=== PATIENT | female | born 1955 | race Caucasian/White ===

== ENCOUNTER → 2017-12-27 08:14 | Outpatient (CLI) | payer BC, SELFPAY ==
--- NOTE | 2017-12-27 08:25 | RAD_ITS ---
STUDY: X-RAY - ESOPHAGUS (BARIUM SWALLOW) WITH FLUOROSCOPY REASON FOR EXAM: Female, 62 years old. Hoarseness and dry mouth. Patient has a history of Sjogren's disease. TECHNIQUE: 16 view(s) of the esophagus were obtained following swallowing of barium. FLUOROSCOPY TIME (if supplied): (0:25) minutes/seconds COMPARISON: None. FINDINGS: There is evidence of aspiration with ingestion of the thin barium. There is no demonstrated esophageal foreign body. There is no demonstrated stricture or mucosal abnormality. Normal gastroesophageal junction, without a demonstrated hiatal hernia. The patient ingested a 12 mm tablet of barium without any difficulty. There is atherosclerotic tortuosity of the aortic arch and descending thoracic aorta. Normal visualized pulmonary parenchyma. There are diffuse degenerative changes of the visualized thoracic spine. RAD/Esophagus Only IMPRESSION: Unremarkable esophagram. The patient aspirated the thin barium. Electronically Signed: Kendrick Salguero MD at 10:09 EDT Tel [phone], Service support ,
== END ==
LOC: RAD 08:15
PROVIDERS: Family Provider Family Medicine; PCP Family Medicine; Visit Provider Family Medicine
DX: R13.10 Dysphagia, unspecified (principal)
CPT/HCPCS: 74220

== ENCOUNTER → 2018-01-24 14:24 | Outpatient (CLI) | payer BC, SELFPAY ==
--- NOTE | 2018-01-24 15:53 | CT_ITS ---
STUDY: CT BRAIN WITH AND WITHOUT CONTRAST REASON FOR EXAM: Female, 62 years old. 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 RADIATION DOSAGE (If Supplied By Facility): CTDIvol = ( 30.10 ) mGy, DLP = ( 2998.85 ) mGycm TECHNIQUE: Transaxial CT imaging of the brain was performed pre and post contrast administration. The examination was performed with intravenous administration of 100 ml of Isovue 300 contrast material. Individualized dose optimization techniques were used for this CT. COMPARISON: None. FINDINGS: Normal soft tissue structures. Normal calvarium. Normal size ventricles and extra-axial spaces for the patient's age. Normal white matter tracts of the cerebral hemispheres. Normal basal ganglia and thalami. Normal brainstem. Normal cerebellum. There is no intracranial hemorrhage. There are no findings of an acute ischemic infarction. There is no abnormal contrast enhancement. The vasculature appears grossly normal. Normal visualized paranasal sinuses. CT/Brain/Head W/WO Contrast IMPRESSION: Normal unenhanced and enhanced CT scan of the brain. Electronically Signed: Jamey Benites DO at 18:55 EDT Tel [phone], Service support ,
--- NOTE | 2018-01-24 15:54 | CT_ITS ---
STUDY: CT SOFT TISSUE NECK WITH CONTRAST REASON FOR EXAM: Female, 62 years old. 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 RADIATION DOSAGE (If Supplied By Facility): CTDIvol = ( 30.10 ) mGy, DLP = ( 2998.85 ) mGycm TECHNIQUE: The patient was scanned in a multi-detector CT scanner. High resolution transaxial imaging was performed following intravenous administration of 100 ml of Isovue 300 contrast material. Sagittal and coronal images were reconstructed. Individualized dose optimization techniques were used for this CT. COMPARISON: None. FINDINGS: Both parotid glands are normal in size. They appear heterogenous lead dense. There is air within the right parotid gland and along the parotid duct without evidence of obstruction. Normal bilateral energy management specialist spaces. Normal bilateral parapharyngeal spaces. Normal bilateral carotid spaces. Normal bilateral sublingual and submandibular glands and spaces. Normal visualized nasopharynx. Normal retropharyngeal space. Normal perivertebral space. Normal visualized bilateral faucial tonsils. The visualized tongue, tongue base and oropharynx are normal. The visualized cervical lymph nodes (levels I-) are within normal size limits, and maintain normal morphology. There is no demonstrated solid or cystic mass lesion. There is no abnormal contrast enhancement. Normal epiglottis, bilateral vallecula and hypopharynx. The pre-epiglottic and paraglottic adipose spaces are normal. Normal visualized bilateral piriform sinuses, aryepiglottic folds, vocal cords, and arytenoid-cricoid articulations. Normal subglottic trachea. Normal bilateral lobes of the thyroid gland. Normal visualized pulmonary apices. Normal visualized paranasal sinuses. Minimal degenerative changes of the cervical spine. CT/Soft Tissue Neck WITH Contrast IMPRESSION: 1. Right sided pneumoparotid. This is usually occupational and seen in breasts and woodwinds players, glass blowers and underwater divers. This can sometimes be caused by suppressing a chronic cough. 2. No other visualized mass or abnormality of the soft tissues of the neck. Electronically Signed: Jamey Benites DO at 19:30 EDT Tel [phone], Service support ,
--- NOTE | 2018-01-24 15:54 | CT_ITS ---
STUDY: CT CHEST WITH CONTRAST REASON FOR EXAM: Female, 62 years old. 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 These RADIATION DOSAGE (If Supplied By Facility): CTDIvol = ( 30.10 ) mGy, DLP = ( 2998.85 ) mGycm TECHNIQUE: Transaxial imaging was performed following intravenous administration of 100 ml of Isovue 300 contrast material. Multiplanar coronal and sagittal images were reformatted. Individualized dose optimization techniques were used for this CT. COMPARISON: None. FINDINGS: The lungs are well-expanded. There is elevation of the right hemidiaphragm. There are scattered blebs without consolidation or mass. There is no demonstrated pleural abnormality. Normal heart and pericardium. Normal mediastinum. Normal hilar regions. Normal enhanced pulmonary arteries. Normal aorta arch and descending thoracic aorta. There are multi-level degenerative changes of the thoracic spine. There is a large irregular calcification in the dome of segment [address]/Chest WITH Contrast IMPRESSION: 1. Scattered blebs without other evidence of pulmonary abnormality. 2. Irregular calcification in the liver. Electronically Signed: Jamey Benites DO at 19:36 EDT Tel [phone], Service support ,
[2018-01-24 16:02] LABS: BUN 17 mg/dL (7-18); Creatinine, Serum 1.05 mg/dL (0.55-1.02); EST Glomerular Filtration Rate 57 mL/min (>60); Est Glom Filt Rate - Afr Amer 69 mL/min (>60)
== END ==
PROVIDERS: Family Provider Family Medicine; PCP Family Medicine; Visit Provider Otolaryngology
DX: J38.01 Paralysis of vocal cords and larynx, unilateral (principal)
CPT/HCPCS: 36415; 70470; 70491; 71260; 82565; 84520; Q9967

== ENCOUNTER → 2018-01-27 09:52 | Outpatient (CLI) | payer BC, SELFPAY ==
[2018-01-27 15:08] LABS: AST(SGOT) 17 U/L (15-37); Alanine Aminotransfer ALT/SGPT 17 U/L (13-56); Albumin, Serum 3.5 g/dL (3.2-5.0); Alkaline Phosphatase 80 U/L (45-117); Globulin 4.7 g/dL (2.2-4.2); Protein, Total 8.2 g/dL (6.4-8.2)
== END ==
PROVIDERS: Family Provider Family Medicine; PCP Family Medicine; Visit Provider Otolaryngology
DX: D13.4 Benign neoplasm of liver (principal)
CPT/HCPCS: 80069; 80076

== ENCOUNTER → 2018-01-31 09:17 | Outpatient (CLI) | payer BC, SELFPAY ==
--- NOTE | 2018-01-31 09:27 | US_ITS ---
STUDY: ABDOMINAL ULTRASOUND - RIGHT UPPER QUADRANT REASON FOR VISIT: Female, 62 years old. Benign neoplasm of liver TECHNIQUE: Ultrasound evaluation of the right upper quadrant was performed with real-time and static goff-scale imaging. TECHNICAL QUALITY: Limited. Examination limited due to obesity. COMPARISON: Report of prior study of 05/14/2011 FINDINGS: Liver: The liver measures 16.3 cm. There is normal echogenicity of the liver. The bile ducts are within normal limits. There is hepatic color flow. The direction of portal flow is hepatopetal. There is a heterogeneous hyperechoic lesion of the superior aspect of the right hepatic lobe measuring 2.3 x 1.9 x 2.8 cm. Gallbladder: Normal distended gallbladder. The gallbladder wall measures 3 mm. There is a negative sonographic Duval's sign. There is no pericholecystic fluid. There are no gallstones. Common Bile Duct (C.B.D.): The common bile duct measures 4 mm. Pancreas: There is limited visualization of the pancreas. The visualized pancreas is unremarkable. Right Kidney: Normal size of the right kidney. The right kidney measures 11.7 x 5.6 x 5.3 cm. Normal renal cortex. The right cortex measures 1.2 cm. There is no demonstrated renal mass or cyst. There is no right hydronephrosis. US/Liver IMPRESSION: Technically limited study. There is a heterogeneous hyperechoic lesion of the superior aspect of the right hepatic lobe measuring 2.3 x 1.9 x 2.8 cm. This corresponds to dense hepatic calcification reported on CT study of 01/24/2018. There is limited visualization of the pancreas. Electronically Signed: Santino Lemus MD at 20:28 EDT , Service support ,
== END ==
LOC: US 09:20
PROVIDERS: Family Provider Family Medicine; PCP Family Medicine; Visit Provider Otolaryngology
DX: D13.4 Benign neoplasm of liver (principal)
CPT/HCPCS: 76705

== ENCOUNTER → 2020-01-03 10:30 | Outpatient (CLI) | payer BC, SELFPAY ==
[2020-01-03 12:35] LABS: Absolute Lymphocyte Count 1.02 X10^3/uL (0.83-4.51); Absolute Neutrophil Count 1.4 X10^3/uL (2.0-7.7); Basophil# 0.02 X10^3/uL; Basophil% 0.7 % (0-1); Eosinophils% 3.6 % (0-5); Hematocrit 39.5 % (37-47); Hemoglobin 12.7 g/dL (12.0-15.0); Lymphocyte # 1.02 X10^3/ul (4.0); Lymphocyte % 36.8 % (19-41); Mean Corp Hgb Conc 32.2 g/dL (32-36); Mean Corpuscular Hgb 30.5 pg (27.0-32.0); Mean Platelet Vol. 10.2 fl (6.2-12.0); Monocyte# 0.23 X10^3/uL; Monocyte% 8.3 % (0-10); NRBC Flagged by Analyzer 0 % (0-5); Neutrophil % 50.6 % (47-70); Platelet Count 310 K/mm3 (150-450); RBC Distribution Width CV 12.7 % (11.6-14.6); RBC Distribution Width SD 43.8 fl (35.1-43.9); Red Blood Count 4.16 M/mm3 (4.2-5.4); White Blood Count 2.8 K/mm3 (4.4-11.0)
== END ==
PROVIDERS: PCP Family Medicine; Referring Provider Internal Medicine Rheumatology; Visit Provider Internal Medicine Rheumatology
DX: D72.819 Decreased white blood cell count, unspecified (principal)
CPT/HCPCS: 36415; 85025

== ENCOUNTER → 2020-11-21 08:26 | Outpatient (CLI) | payer OTHER, SELFPAY ==
[2020-11-21 10:07] LABS: Absolute Lymphocyte Count 0.96 X10^3/uL (0.83-4.51); Absolute Neutrophil Count 1.2 X10^3/uL (2.0-7.7); Basophil# 0.02 X10^3/uL; Basophil% 0.8 % (0-1); Eosinophil# 0.11 X10^3/uL; Eosinophils% 4.4 % (0-5); Hematocrit 37.3 % (37-47); Hemoglobin 11.8 g/dL (12.0-15.0); Lymphocyte # 0.96 X10^3/ul (0.83-4.51); Lymphocyte % 38.2 % (19-41); Mean Corp Hgb Conc 31.6 g/dL (32-36); Mean Corpuscular Hgb 30.1 pg (27.0-32.0); Mean Corpuscular Volume 95.2 fL (81-99); Mean Platelet Vol. 10.8 fl (6.2-12.0); Monocyte# 0.27 X10^3/uL; Monocyte% 10.8 % (0-10); NRBC Flagged by Analyzer 0 % (0-5); Neutrophil # 1.15 X10^3/uL (2.7-7.7); Neutrophil % 45.8 % (47-70); Platelet Count 273 K/mm3 (150-450); RBC Distribution Width CV 12.9 % (11.6-14.6); RBC Distribution Width SD 44.5 fl (35.1-43.9); Red Blood Count 3.92 M/mm3 (4.2-5.4); White Blood Count 2.5 K/mm3 (4.4-11.0)
== END ==
LOC: MTLAB 08:28
PROVIDERS: PCP Family Medicine; Referring Provider Internal Medicine Rheumatology; Visit Provider Internal Medicine Rheumatology
DX: D72.819 Decreased white blood cell count, unspecified (principal)
CPT/HCPCS: 36415; 85025

== ENCOUNTER 2021-03-28 20:27 | Inpatient (IN) | payer OTHER, SELFPAY ==
[2021-03-28] VITALS (8 sets, daily range): BP systolic 102–127; BP diastolic 62–78; PULSE 84–99; RESP 24–29; TEMP 37.7–39.2; O2SAT 92–94; BMI 35.5
--- NOTE | 2021-03-28 20:58 | EKG12_ITS ---
Test Reason : DYSRHYTHMIA Blood Pressure : / mmHG Vent. Rate : 097 BPM Atrial Rate : 097 BPM P-R Int : 148 ms QRS Dur : 082 ms QT Int : 342 ms P-R-T Axes : 031 068 025 degrees QTc Int : 434 ms Normal sinus rhythm Normal ECG When compared with ECG of 19-FEB-2012 00:40, Vent. rate has increased BY 35 BPM Confirmed by BOGDAN DICKEY, JENELLE ([id number]), department editor BAYLEE XAVIER ([id number]) on 04/02/2021 11:13:02 AM Referred By: Confirmed By:JENELLE MCFADDEN MD
--- NOTE | 2021-03-28 20:58 | RAD_ITS ---
HISTORY: Cough EXAMINATION/TECHNIQUE: XR Chest 1 View: Portable upright AP chest x-ray COMPARISON: Chest CT 01/24/18, chest x-ray 03/04/12 FINDINGS: LINES/DEVICES: None. LUNGS: Persistent elevation right hemidiaphragm. Hazy bilateral airspace opacities without consolidation or pleural effusion. MEDIASTINUM AND CARDIOVASCULAR STRUCTURES: Cardiac silhouette not enlarged. Central airways and mediastinal contour are unremarkable. BONES AND SOFT TISSUES: No acute bony abnormalities. RAD/Chest 1 View (Portable) IMPRESSION: Hazy bilateral airspace disease suspicious for pneumonia including atypical or viral pneumonia. at 2315 Reported and signed by: Slava Montero MD Electronically Signed: Slava Montero MD at 23:14 EDT Tel , Service support ,
[2021-03-28 21:11] LABS: Bacteria 0 SEEN /hpf (None Seen); Mucous, Urine 0 SEEN /hpf (<or=2+)
[2021-03-28 21:15] LABS: Color, Urine Yellow (Yellow); Glucose, Dipstick Normal (Normal); Ketone-Dipstick 5 mg/dl (Negative); Leukocyte Esterase-Dipstick 25 /ul (Negative); Nitrite-Dipstick Negative (Negative); Occult Blood-Urine 10 /ul (Negative); Protein-Dipstick 100 mg/dl (Negative); Specific Gravity, Urine 1.015 (1.002-1.030); Urine Bilirubin Dipstick Negative (Negative); Urine Clarity Sl. Cloudy (Clear); Urine Urobilinogen 1 mg/dl (Normal)
--- NOTE | 2021-03-28 21:19 | EDS_ITS ---
HPI History of Present Illness Chief Complaint: Fatigue Detail of Chief Complaint: Recent urinary tract infection, confusion Informant: family Onset/Context/Timing Onset: Today Context: Sudden Onset Timing: Continuous Quality: Confusion Location: Generalized Current Severity: Moderate Maximum Severity: Moderate Worsened by: Suspect due to urinary tract infection Relieved by: Nothing Associated Symptoms Associated Symptoms: Unable to determine Narrative Narrative: The informant is the family member/daughter. She was recently diagnosed with urinary tract infection. She is present on Macrobid. She developed diarrhea yesterday. There is a relative with Covid. There may have been exposure. She does have slight cough. She has had no vomiting or. History is limited because she is disoriented to time and place. Prior similar symptoms: Yes (Per family member she has had confusion when she is had a urinary tract inf) Recent Illness/Hospitalization: No PFSH PFSH Medical History (Updated 03/28/21 @ 23:[address] Abran Bai MD) Asthma Fibromyalgia H/O Sjogren's disease Rheumatoid arthritis UTI (urinary tract infection) Home Medications cholecalciferol (vitamin D3) 50,000 unit PO QWEEK 03/28/21 [History Last Taken Unknown] hydroxychloroquine 200 mg PO DAILY 03/28/21 [History Last Taken Unknown] Allergy/AdvReac Type Severity Reaction Status Date / Time No Known Allergies Allergy Verified 03/28/21 22:52 Social History (Updated 03/28/21 @ 21:[address] Abran Bai MD) household members: family Smoking Status: Never smoker alcohol intake: current alcohol intake frequency: other substance use type: does not use ROS ROS ED Review of Systems ROS Unobtainable: due to mental status EXAM Physical Exam Const Vital Signs: 03/28/21 20:27 03/28/21 20:31 03/28/21 21:31 Temperature 99.8 F H 102.2 F H 102.5 F H Temperature Source Oral Oral Oral Pulse Rate 99 92 94 Respiratory Rate 24 H 29 H 29 H Blood Pressure 121/78 H 127/68 H 122/74 H Blood Pressure Mean 92 87 90 Pulse Ox 92 94 94 Oxygen Delivery Method Room Air Room Air Room Air 03/28/21 21:58 03/28/21 22:00 Temperature 102.5 F H 102.5 F H Temperature Source Oral Oral Pulse Rate 91 Respiratory Rate 29 H Blood Pressure 111/62 Blood Pressure Mean 78 Pulse Ox 92 Oxygen Delivery Method Room Air Positive well nourished, well developed and obese General Appearance ED: well developed and NAD Nutritional Appearance: obese HEENT HEENT Narrative: Head is atraumatic normocephalic. Ears normal. Nares patent. Mucosa is dry. No erythema exudate posterior pharynx. Eyes PERRL and EOMs intact bilaterally General Eye ED: Negative for pale conjunctiva or scleral icterus Neck no lymphadenopathy, supple and no JVD General: Negative for tenderness Chest Wall inspection of chest normal Resp normal respiratory effort and clear to auscultation bilaterally Cardio regular rate, regular rhythm, S1 normal heart sound, S2 normal heart sound and no murmurs GI normal to inspection, nondistended, normoactive bowel sounds and non-tender Palpation: soft Back/Spine no CVA tenderness Cervical Spine: Negative for cervical spine tenderness Thoracic Spine / Upper Back: Negative for thoracic spinal tenderness or paraspinal muscle tenderness Extremity normal to inspection General Extremety ED: Negative for tenderness Neuro No oriented x3, CN's II-XII intact bilaterally and no sensory deficits noted Sensorium / Orientation: orientation impaired; Negative for alert Psych Psych Narrative: Unable to determine Skin no rashes or lesions noted and no wounds MDM MDM MDM Narrative Medical decision making narrative: Patient is febrile. Suspect infectious cephalopathy due to urinary tract infection. She does have 2 sirs criteria. Sepsis work-up was initiated. IV antibiotics for urinary tract infection was ordered. Because of the diarrhea Covid test was obtained since there was exposure to family member with Covid. Daughter states she has been vaccinated. Also need to rule out other causes. Would not suspect Macrobid to be cause of diarrhea since it is not systemically absorbed. This patient has bilateral institution pneumonia azithromycin was also administered. This may represent Covid. Her encephalopathy may be due to Covid need to evaluate for stroke since she is at increased risk for hypercoagulable state. Lab Data Attestation: I reviewed the patient's lab results. Lab results narrative: Patient is neutropenic. She has been neutropenic on prior lab results. UA is unremarkable. Coags are normal. Labs: Laboratory Results - last 24 hr 03/28/21 03/28/21 03/28/21 21:05 21:30 21:30 WBC 3.1 L RBC 4.82 Hgb 14.4 Hct 45.1 MCV 93.6 MCH 29.9 MCHC 31.9 L RDW Std Deviation 44.6 H RDW Coeff of Megan 13.0 Plt Count 200 MPV 10.8 Immature Gran % (Auto) 0.300 Neut % (Auto) 75.3 H Lymph % (Auto) 20.6 [place] % (Auto) 3.5 Eos % (Auto) 0.0 Baso % (Auto) 0.3 Absolute Neuts (auto) 2.3 Absolute Lymphs (auto) 0.64 L Nucleated RBC % 0 Differential Comment SCANNED PT 12.9 INR 1.0 APTT 34.2 Sodium Potassium Chloride Carbon Dioxide Anion Gap BUN Creatinine Estim Creat Clear Calc Est GFR (MDRD) Af Amer Est GFR (MDRD) Non-Af BUN/Creatinine Ratio Glucose Lactic Acid Calcium Total Bilirubin AST ALT Alkaline Phosphatase Total Protein Albumin Globulin Albumin/Globulin Ratio Urine Color Yellow Urine Clarity Sl. Cloudy Urine pH 6.0 Ur Specific [place] 1.015 Urine Protein 100 H Urine Glucose (UA) Normal Urine Ketones 5 H Urine Occult Blood 10 H Urine Nitrite Negative Urine Bilirubin Negative Urine Urobilinogen 1 H Ur Leukocyte Esterase 25 H Urine RBC 0-5 SEEN Urine WBC 0-5 SEEN Ur Squamous Epith Cells 0-5 SEEN Ur Transition Epith Cell 0-5 SEEN Urine Bacteria 0 SEEN Urine Mucus 0 SEEN 03/28/21 03/28/21 21:30 21:30 WBC RBC Hgb Hct MCV MCH MCHC RDW Std Deviation RDW Coeff of Megan Plt Count MPV Immature Gran % (Auto) Neut % (Auto) Lymph % (Auto) [place] % (Auto) Eos % (Auto) Baso % (Auto) Absolute Neuts (auto) Absolute Lymphs (auto) Nucleated RBC % Differential Comment PT INR APTT Sodium 132 L Potassium 4.2 Chloride 99 Carbon Dioxide 26.0 Anion Gap 7 BUN 13 Creatinine 1.10 H Estim Creat Clear Calc 48.37 Est GFR (MDRD) Af Amer 64 Est GFR (MDRD) Non-Af 53 L BUN/Creatinine Ratio 11.8 Glucose 99 Lactic Acid 1.5 Calcium 9.1 Total Bilirubin 0.70 AST 54 H ALT 28 Alkaline Phosphatase 69 Total Protein 10.1 H Albumin 3.5 Globulin 6.6 H Albumin/Globulin Ratio 0.5 L Urine Color Urine Clarity Urine pH Ur Specific [place] Urine Protein Urine Glucose (UA) Urine Ketones Urine Occult Blood Urine Nitrite Urine Bilirubin Urine Urobilinogen Ur Leukocyte Esterase Urine RBC Urine WBC Ur Squamous Epith Cells Ur Transition Epith Cell Urine Bacteria Urine Mucus Radiography Chest X-Ray - ED: 1 View, Read by ED Physician (Single portable view x-ray interpreted me at 2250. There is increased interstitial markings on the left with air bronchogram. This may represent pneumonia. This may be due to Covid since she was exposed even though she was vaccinated.), Heart, Mediastinum and Bony Structures EKG Initial EKG: Attestation: I personally reviewed and interpreted this EKG as follows: Interpretation: Sinus Rhythm (Ventricular rate is 97. [place] interval is 148 ms. Duration is 82 ms. QT duration 342 ms. [place] normal. EKG is normal.) Critical Care Time Critical Care Time: Yes Critical care time (excluding procedures): 30-74 minutes (32 minutes), Including time spent: (History, physical, documentation, review of prior records, interpretation of laboratory results and chest x-ray, initiation of therapy), Discussing w/Patient &/or Family/Bi Specialist, Discussing w/Consultants and Arranging Admission or Transfer Discharge Plan Triage Chief Complaint: Fatigue ED Provider: Abran Bai Dx/Rx/DC Orders Clinical Impression: Bilateral interstitial pneumonia, Neutropenia, Encephalopathy acute, Fever, Fever and neutropenia Prescriptions: No Action cholecalciferol (vitamin D3) 1,250 mcg (50,000 unit) capsule 50,000 unit PO QWEEK RF: 0 hydroxychloroquine 200 mg tablet 200 mg PO DAILY RF: 0 Primary Care Provider: Jacqueline Layne Referrals: Jacqueline Layne DO [Primary Care Provider] - Disposition Disposition: Acute Care Hospital [facility]
[2021-03-28 21:38] LABS: Red Blood Cells-Urine 0-5 SEEN /hpf (0-5); Squamous Epithelial Cells - UA 0-5 SEEN /hpf (5-10); Transitional Epithelial - Ur 0-5 SEEN /hpf (0-5); White Blood Cells 0-5 SEEN /hpf (0-5)
[2021-03-28] MEDS: 0.9% Normal Saline 1,000 ML 999 ML IV (21:53)
[2021-03-28 21:54] LABS: Absolute Lymphocyte Count 0.64 X10^3/uL (0.83-4.51); Absolute Neutrophil Count 2.3 X10^3/uL (2.0-7.7); Basophil# 0.01 X10^3/uL; Basophil% 0.3 % (0-1); Hematocrit 45.1 % (37-47); Hemoglobin 14.4 g/dL (12.0-15.0); Lymphocyte # 0.64 X10^3/ul (0.83-4.51); Lymphocyte % 20.6 % (19-41); Mean Corp Hgb Conc 31.9 g/dL (32-36); Mean Corpuscular Hgb 29.9 pg (27.0-32.0); Mean Corpuscular Volume 93.6 fL (81-99); Mean Platelet Vol. 10.8 fl (6.2-12.0); Monocyte# 0.11 X10^3/uL; Monocyte% 3.5 % (0-10); NRBC Flagged by Analyzer 0 % (0-5); Neutrophil # 2.34 X10^3/uL (2.7-7.7); Neutrophil % 75.3 % (47-70); POSITIVE MORPHOLOGY YES; Platelet Count 200 K/mm3 (150-450); RBC Distribution Width SD 44.6 fl (35.1-43.9); Red Blood Count 4.82 M/mm3 (4.2-5.4); White Blood Count 3.1 K/mm3 (4.4-11.0)
[2021-03-28 22:10] LABS: Partial Thromboplast Time 34.2 Seconds (24.1-36.2); Prothrombin Time (Protime)PT. 12.9 SECONDS (11.7-14.9)
[2021-03-28 22:14] LABS: ALB/GLOB Ratio 0.5 RATIO (0.9-2.4); AST(SGOT) 54 U/L (15-37); Alanine Aminotransfer ALT/SGPT 28 U/L (13-56); Albumin, Serum 3.5 g/dL (3.2-5.0); Alkaline Phosphatase 69 U/L (45-117); Anion Gap 7 (5-15); BUN 13 mg/dL (7-18); BUN/Creat Ratio 11.8 RATIO (10-20); Calcium,Total 9.1 mg/dL (8.5-10.1); Chloride 99 mmol/L (98-107); EST Glomerular Filtration Rate 53 mL/min (>60); Est Glom Filt Rate - Afr Amer 64 mL/min (>60); Estimated Creatinine Clearance 48.37 ml/min; Globulin 6.6 g/dL (2.2-4.2); Glucose 99 mg/dL (74-106); Potassium 4.2 mmol/L (3.5-5.1); Protein, Total 10.1 g/dL (6.4-8.2); Sodium Level 132 mmol/L (136-145)
[2021-03-28] MEDS: Ceftriaxone 1 GM/50 ML BAG IV (22:18)
[2021-03-28 22:29] LABS: Lactic Acid 1.5 mmol/L (0.4-1.9)
[2021-03-28 22:37] LABS: Differential Comment SCANNED
[2021-03-28 22:38] LABS: Differential Indicated SCAN CRITERIA MET
--- NOTE | 2021-03-28 22:56 | CT_ITS ---
We are attempting to reach an attending provider to discuss findings. An addendum with communication details will be sent when the communication is complete. HISTORY: Cephalopathic, febrile, probable Covid TECHNIQUE: Multiple axial images were obtained of the brain without intravenous contrast. A radiation dose optimization technique was used for this scan. IV Contrast dosage and agent: None. COMPARISON: 01/24/18 FINDINGS: # of images incl. 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 INTRACRANIAL HEMORRHAGE: None. BRAIN PARENCHYMA: No CT evidence of stroke. No intracranial masses. There is preservation of the goff/white matter interface. Posterior fossa structures are unremarkable. CSF SPACES: Appropriate for age. There is no hydrocephalus. MASS EFFECT: None. CALVARIUM: Intact. CT/STROKE Brain/Head without Cont IMPRESSION: No acute intracranial findings. Pansinusitis. Individualized dose optimization techniques were used for this CT. at 2334 Reported and signed by: Slava Montero MD Electronically Signed: Slava Montero MD at 23:33 EDT Tel , Service support ,
--- NOTE | 2021-03-28 23:32 | PCM.HP.STD ---
HPI - General General Date of Admission: 03/28/21 Date of Service: 03/28/21 Chief Complaint: Fever, chills, headache, cough, body aches, dyspnea, diarrhea, nausea, abdominal discomfort. HPI Narrative The patient is a 65 y/o F w/ PMHx: Asthma, Sjogren's syndrome, Rheumatoid arthritis, Fibromyalgia, Morbid Obesity who presents to the [facility] ED on 03/28/21 with history of recent sensation of dysuria prompting ED evaluation the Wednesday prior to current presentation with PCP initiation of Macrobid with then onset of symptoms over the last 24 hours fever, chills, headache, cough, dyspnea, diarrhea, abdominal cramping, body aches and eventual confusion with significant fatigue and malaise reportedly sleeping for several hours on and which is not patient's baseline prompting evaluation. Patient is not vaccinated against Covid. Family had initially been concerned that this was secondary to a urinary tract infection. Work-up in the ED included T102.5, heart rate 91-99, BP 111/62, respiratory rate 29-36, 92 to 94% on room air, CBC with WBC 3.1, hemoglobin 14.4, platelet 200 with lymphopenia, ANC 2.3 of note given patient history, unremarkable coags, CMP with sodium 132, BUN/creatinine 13/1.10, lactic acid 1.5, AST/ALT 54/28, alk phos 69, urinalysis with specific [place] 1.015, protein 100, ketone 5, occult blood 10, negative nitrite, leukocyte esterase 25, no marked urine WBCs or urine bacteria, chest x-ray with hazy bilateral airspace disease bilaterally suspicious for atypical viral Covid pneumonia, CT head with no acute intracranial findings, EKG with sinus rhythm with no acute evidence of ischemia, rapid Covid antigen negative, Covid PCR pending per discussion with ED physician, blood culture x2 pending per ED, urine culture pending per ED. in the ED patient ministered normal saline, azithromycin, Rocephin, Decadron 10 mg IV x1. [facility] Medical History (Updated 03/29/21 @ 01:[address] Sheba Zapata MD) Asthma Fibromyalgia H/O Sjogren's disease Rheumatoid arthritis UTI (urinary tract infection) Home Medications cholecalciferol (vitamin D3) 50,000 unit PO QWEEK 03/28/21 [History Last Taken Unknown] hydroxychloroquine 200 mg PO DAILY 03/28/21 [History Last Taken Unknown] Allergy/AdvReac Type Severity Reaction Status Date / Time No Known Allergies Allergy Verified 03/28/21 22:52 other (Patient denied any marked maternal or paternal family history including heart disease, diabetes, cancer.) Surgical History (Updated 03/29/21 @ 01:[address] Sheba Zapata MD) History of hysterectomy Social History (Updated 03/29/21 @ 01:[address] Sheba Zapata MD) household members: spouse Smoking Status: Never smoker alcohol intake: current alcohol intake frequency: other substance use type: does not use ROS ROS Narrative Admission Review of Systems: CONSTITUTIONAL: No weight loss, + fever, chills, weakness or fatigue. HEENT: + Headache. Eyes: No visual loss, blurred vision, double vision or yellow sclerae. Ears, Nose, Throat: No hearing loss, sneezing, congestion, runny nose or sore throat. SKIN: No rash or itching, lesions, wounds. CARDIOVASCULAR: No chest pain, chest pressure or chest discomfort, palpitations, edema, orthopnea, syncopal events. RESPIRATORY: + shortness of breath, cough without marked sputum, No wheezing, hemoptysis. GASTROINTESTINAL: + anorexia, diarrhea, abdominal cramping, No nausea, vomiting, melena, BRBPR. GENITOURINARY: + dysuria, frequency, urgency or retention. NEUROLOGICAL: + headache, No dizziness, syncope, paralysis, ataxia, numbness or tingling in the extremities, focal weakness, change in bowel or bladder control, seizure. MUSCULOSKELETAL: + muscle, back pain, joint pain or stiffness. HEMATOLOGIC: No anemia, bleeding or bruising. LYMPHATICS: No enlarged nodes. No history of splenectomy. PSYCHIATRIC: No history of depression or anxiety. ENDOCRINOLOGIC: No reports of sweating, cold or heat intolerance. No polyuria or polydipsia. ALLERGIES: + history of asthma, hives, eczema or rhinitis. Vital Signs Vital Signs Vital Signs: 03/28/21 20:27 03/28/21 20:31 03/28/21 21:31 Temperature 99.8 F H 102.2 F H 102.5 F H Temperature Source Oral Oral Oral Pulse Rate 99 92 94 Respiratory Rate 24 H 29 H 29 H Respiratory Effort Respiratory Pattern Blood Pressure 121/78 H 127/68 H 122/74 H Blood Pressure Mean 92 87 90 Pulse Ox 92 94 94 Oxygen Delivery Method Room Air Room Air Room Air 03/28/21 21:58 03/28/21 22:00 03/28/21 22:58 Temperature 102.5 F H 102.5 F H Temperature Source Oral Oral Pulse Rate 91 Respiratory Rate 29 H Respiratory Effort Normal Non-Labored Respiratory Pattern Normal Blood Pressure 111/62 Blood Pressure Mean 78 Pulse Ox 92 Oxygen Delivery Method Room Air Weight Weight: 220 lb Body Mass Index (BMI) 35.5 Physical Exam Narrative Physical Examination: General: Awake, intermittently alert, oriented to self and some recent events but very lethargic, quickly falling back asleep and having some difficulty answering questions, laying in the ED bed, significantly ill-appearing, tachypnea, increased work of breathing with accessory muscle usage evident. Skin: Normal color, normal turgor, no icterus, no cyanosis. HEENT: AT/NC, EOMI, PERRLA, dry MM, no carotid bruits or JVD noted. Lungs: Diffusely diminished, greater bases, tachypnea, increased work of breathing with some accessory muscle usage, evidence of distress, no rales, ronchi or wheezing. Heart: Tachycardic with regular rhythm; no gallop, rub audible. Abdomen: Soft, generalized discomfort with palpation, no specific rebound or guarding, unable to discern any distention, hyperactive bowel sounds, no obvious HSM. Extremities: No cyanosis, clubbing, or edema. Neurological: Patient awake, intermittently alert, lethargic, cognitive function not baseline intact; pupils equally reactive to light and accommodation, cranial nerves II-XII grossly normal, moving all 4 extremities, no focal deficits, strength severely global decreased secondary to acute presentation. Psychiatric: Affect appears fatigued, ill-appearing, evidence of respiratory compromise, no acute evidence of depressive or anxiety feelings. Results Lab / Micro Data Result Diagrams: 03/28/21 21:30 03/28/21 21:30 Labs: Laboratory Results - last 24 hr 03/28/21 21:05: Urine Color Yellow, Urine Clarity Sl. Cloudy, Urine pH 6.0, Ur Specific [place] 1.015, Urine Protein 100 H, Urine Glucose (UA) Normal, Urine Ketones 5 H, Urine Occult Blood 10 H, Urine Nitrite Negative, Urine Bilirubin Negative, Urine Urobilinogen 1 H, Ur Leukocyte Esterase 25 H, Urine RBC 0-5 SEEN, Urine WBC 0-5 SEEN, Ur Squamous Epith Cells 0-5 SEEN, Ur Transition Epith Cell 0-5 SEEN, Urine Bacteria 0 SEEN, Urine Mucus 0 SEEN 03/28/21 21:30: WBC 3.1 L, RBC 4.82, Hgb 14.4, Hct 45.1, MCV 93.6, MCH 29.9, MCHC 31.9 L, RDW Std Deviation 44.6 H, RDW Coeff of Megan 13.0, Plt Count 200, MPV 10.8, Immature Gran % (Auto) 0.300, Neut % (Auto) 75.3 H, Lymph % (Auto) 20.6, [place] % (Auto) 3.5, Eos % (Auto) 0.0, Baso % (Auto) 0.3, Absolute Neuts (auto) 2.3, Absolute Lymphs (auto) 0.64 L, Nucleated RBC % 0, Differential Comment SCANNED 03/28/21 21:30: PT 12.9, INR 1.0, APTT 34.2 03/28/21 21:30: Sodium 132 L, Potassium 4.2, Chloride 99, Carbon Dioxide 26.0, Anion Gap 7, BUN 13, Creatinine 1.10 H, Estim Creat Clear Calc 48.37, Est GFR (MDRD) Af Amer 64, Est GFR (MDRD) Non-Af 53 L, BUN/Creatinine Ratio 11.8, Glucose 99, Calcium 9.1, Total Bilirubin 0.70, AST 54 H, ALT 28, Alkaline Phosphatase 69, Total Protein 10.1 H, Albumin 3.5, Globulin 6.6 H, Albumin/Globulin Ratio 0.5 L 03/28/21 21:30: Lactic Acid 1.5 Micro: Microbiology 03/28/21 22:50 Nasal Secretion SARS-CoV-2 Antigen (Rapid) - Final Radiology Impression Chest X-Ray 03/28/21 20:58 IMPRESSION: Hazy bilateral airspace disease suspicious for pneumonia including atypical or viral pneumonia. at 2315 Reported and signed by: Slava Montero MD Electronically Signed: Slava Montero MD at 23:14 EDT Tel , Service support , Assessment & Plan Assessment/Plan (1) Acute respiratory failure with hypoxia: (2) Suspected COVID-19 virus infection: (3) Encephalopathy acute: PLAN: The patient is a 65 y/o F w/ PMHx: Asthma, Sjogren's syndrome, Rheumatoid arthritis, Fibromyalgia, Morbid Obesity who presents to the [facility] ED on 03/28/21 with history of recent sensation of dysuria prompting ED evaluation the Wednesday prior to current presentation with PCP initiation of Macrobid with then onset of symptoms over the last 24 hours fever, chills, headache, cough, dyspnea, diarrhea, abdominal cramping, body aches and eventual confusion with significant fatigue and malaise. 1. Acute Encephalopathy secondary to Acute Hypoxic Respiratory Failure secondary to Acute Bilateral Pneumonia secondary to Suspected Acute Viral Syndrome, COVID-19: Patient Covid antigen rapid is negative however high suspicion for Covid with pending Covid PCR. In the ED patient was administered Rocephin and azithromycin. Will admit to PCU and maintain under Covid precautions given high suspicion and pending PCR, currently worsening hypoxia and respiratory presentation therefore will maintain on oxygen with wean as tolerated to room air but low threshold for transition to air Vo or BiPAP, PRN albuterol, HOB, IS parameters w/ pending sputum cultures, respiratory viral panel and urine antigens, will obtain D-dimer, procalcitonin, CRP, CPK, Ferritin, LDH, trop and BNP, continue supportive care including q 2 hour turning including prone given no prone bed availability and judicious hydration, closely monitor for worsening status for ARDS and multiorgan failure, will consult Infectious disease, will initiate and continue IV decadron x 10 doses given high suspicion for Covid and once Covid PCR results if positive will initiate IV remdesivir. If patient does significantly worsen low threshold for transition to ICU with pulmonary consultation. 2. Rheumatoid arthritis, Sjogren's disease: We will continue patient home hydroxychloroquine although given treatment as noted above if any concerns will hold. 3. Chronic asthma: Not on any routine inhalers, will have as needed albuterol, encourage head of bed, I-S especially given #1. 4. Morbid Obesity: Weight loss and lifestyle changes encouraged. 5. DVT prophylaxis: SCDs, Lovenox. 6. CODE status: Patient does not have healthcare power of attorney at law nor living will in place. Given severity of presentation and high suspicion for Covid in an unvaccinated status with immunosuppression, discussed CODE status at length including difference between FULL code, DNR-CCA and DNR-CC status. Following discussions about the differences in these status, requested Full Code status. Amenable to airvo and BIPAP. Advanced Care Planning Face to Face Time: 16 minutes. Charges/Coding Visit Charges Inpatient E&M: 64292 Init Hosp L3 Procedures Hospitalists Procedures: 90252 Advncd Care Plan 30 Min
[2021-03-28] MEDS: dexAMETHasone 10 MG/ML Vial IV (23:50)
[2021-03-29] VITALS (22 sets, daily range): BP systolic 94–117; BP diastolic 38–96; PULSE 58–83; RESP 16–32; TEMP 36.9–38.2; O2SAT 88–98; BMI 40.4
[2021-03-29 00:56] LABS: D-Dimer Quantitative (DVT/PE) 1.93 FEU/ug/m (0.27-0.49); Ferritin 582 ng/mL (8-252); LDH 631 U/L (84-246); Magnesium 2.5 mg/dL (1.6-2.6)
[2021-03-29] MEDS: 0.9% Normal Saline 1,000 ML 100 ML IV (01:19)
--- NOTE | 2021-03-29 01:27 | CT_ITS ---
EXAM: CT Angiography Chest Without and With Intravenous Contrast CLINICAL INDICATION: 65 years old, Female; suspected PE TECHNIQUE: Helically acquired angiography images were obtained of the chest without and with intravenous contrast. This CT exam was performed using one or more of the following dose reduction techniques: automated exposure control, adjustment of the mA and/or kV according to patient size, and/or use of iterative reconstruction technique. This report was created using [employer] report generation technology. MIP reconstructed images were created and reviewed. CONTRAST: IV 100mL [id number] COMPARISON: None. FINDINGS: Artifacts: Motion artifact. Motion artifact. Limitations: Suboptimal opacification of the pulmonary arteries. Pulmonary arteries: No central pulmonary embolism is identified. The remaining pulmonary arteries cannot be evaluated due to artifact. Aorta: Unremarkable. Normal in caliber. No evidence of dissection. Great vessels of aortic arch: Unremarkable. Normal in caliber. No evidence of dissection. Lungs and pleural spaces: Consolidative infiltrates throughout both lungs consistent with pneumonia. No mass. No pleural effusion or thickening. Heart: Unremarkable. Heart size is normal. No pericardial effusion. No signs of right heart strain, ratio of right ventricle to left ventricle measures less than 1. Mediastinum: Unremarkable. No mediastinal or hilar adenopathy. Esophagus is unremarkable. No hiatal hernia. Thyroid: Unremarkable. No thyroid lesions. Bones/joints: Unremarkable. No suspicious lytic or blastic abnormality. CT/CTA Chest W/WO Contrast IMPRESSION: 1. No central pulmonary embolism is identified. The remaining pulmonary arteries cannot be evaluated due to artifact and suboptimal opacification. 2. Consolidative infiltrates throughout both lungs consistent with pneumonia. Consider COVID-19 pneumonia. ASSESSMENT: ABNORMAL report - There are abnormal findings in this report which may be related or unrelated to the reason for the exam. Electronically Signed: Jeff Christianson MD at 4:08 EDT Tel , Service support ,
[2021-03-29 02:05] LABS: Procalcitonin 0.26 ng/mL (0.00-0.09)
--- NOTE | 2021-03-29 02:22 | NURSING ---
TRANSPORTED VIA BED DOWN TO CT SCAN FOR CTA.
--- NOTE | 2021-03-29 02:28 | NURSING ---
RCVD CALL FROM LAB THAT PATIENT'S COVID PCR CAME BACK POSITIVE.
[2021-03-29 06:23] LABS: Absolute Lymphocyte Count 0.39 X10^3/uL (0.83-4.51); Absolute Neutrophil Count 1.5 X10^3/uL (2.0-7.7); Hemoglobin 11.3 g/dL (12.0-15.0); Lymphocyte # 0.39 X10^3/ul (0.83-4.51); Lymphocyte % 20.4 % (19-41); Mean Corp Hgb Conc 32.3 g/dL (32-36); Mean Corpuscular Hgb 30.1 pg (27.0-32.0); Mean Corpuscular Volume 93.3 fL (81-99); Mean Platelet Vol. 10.6 fl (6.2-12.0); Monocyte# 0.06 X10^3/uL; Monocyte% 3.1 % (0-10); NRBC Flagged by Analyzer 0 % (0-5); Neutrophil # 1.45 X10^3/uL (2.7-7.7); POSITIVE DIFFERENTIAL YES; POSITIVE MORPHOLOGY YES; Platelet Count 160 K/mm3 (150-450); RBC Distribution Width CV 13.2 % (11.6-14.6); RBC Distribution Width SD 45.4 fl (35.1-43.9); Red Blood Count 3.75 M/mm3 (4.2-5.4); White Blood Count 1.9 K/mm3 (4.4-11.0)
[2021-03-29 06:44] LABS: Differential Indicated SCAN CRITERIA MET
[2021-03-29 06:47] LABS: ALB/GLOB Ratio 0.5 RATIO (0.9-2.4); AST(SGOT) 44 U/L (15-37); Alanine Aminotransfer ALT/SGPT 22 U/L (13-56); Albumin, Serum 2.5 g/dL (3.2-5.0); Alkaline Phosphatase 50 U/L (45-117); Anion Gap 7 (5-15); BUN 13 mg/dL (7-18); BUN/Creat Ratio 17.7 RATIO (10-20); Calcium,Total 7.8 mg/dL (8.5-10.1); Chloride 105 mmol/L (98-107); Creatinine, Serum 0.73 mg/dL (0.55-1.02); EST Glomerular Filtration Rate 85 mL/min (>60); Est Glom Filt Rate - Afr Amer 102 mL/min (>60); Estimated Creatinine Clearance 75.71 ml/min; Glucose 150 mg/dL (74-106); Potassium 4.2 mmol/L (3.5-5.1); Protein, Total 7.5 g/dL (6.4-8.2); Sodium Level 135 mmol/L (136-145)
--- NOTE | 2021-03-29 07:25 | PCS.PANDOC ---
PANDEMIC DOCUMENTATION INITIATED: Date: 02/17/2021 Time: 190
[2021-03-29] MEDS: Enoxaparin 30 MG/0.3 ML Syringe SC ×2 (08:12→22:09)
[2021-03-29] MEDS: dexAMETHasone 4 MG/ML Vial 6 MG IV (08:12)
--- NOTE | 2021-03-29 10:01 | CASEMGMT ---
Pt states is not vaccinated. Pt states no concerns getting resources once home. Gwendolyn MATA CM Original Note: ADOLFO MORTON Assessment: Initial transition planning/care coordination assessment. ADOLFO MORTON introduced self and role at [facility], pt voices understanding and consents to assessment. Pt is A/Ox4 and answers all questions appropriately. Pt is currently on 2Lnc and speaks in full sentences. Care providers, pharmacy, and demographics verified. Presentation: Pt currently being treated for UTI w/ macrobid, pt c/o weak and confused Admitting dx: COVID, hypoxia, bilat pna PCP: Xi Specialists: [facility] arthritis clinic Preferred Pharmacy: [facility] Insurance: [employer] Prescription Benefit: Pt states no Rx coverage but states no concerns and states gets reimbursed for some meds. Living Will/HPOA: Pt states does not have LW/HPOA and declines AD info at this time. LNOK: John Medrano, ; Nenita Argueta, daughter Living Arrangements: Pt states lives with in mobile home and states no concerns at home. Pt states is independent with ADL's. Transportation: Pt states drives self and states no transportation concerns. DME/HHC: Pt states has [facility] at home but does not use and states no need for any further DME. Pt states no preference for DME, if qualifies for home oxygen. Pt states no hx of HHC or SNF. Pt states no concerns with going home at time of discharge. 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 Pt states does not smoke cigarettes or drink ETOH. Pt states no further concerns/needs. CM to follow for home oxygen testing and any further discharge planning/needs. Advised pt to ask for CM if any further questions/concerns/needs arise, voices understanding. Pt Goal: Home Plan: Home, pending home oxygen testing. Gwendolyn MATA CM
--- NOTE | 2021-03-29 10:01 | CASEMGMT ---
Addendum entered by Jailene Grier 03/29/21 14:03: Pt states is not vaccinated but plans to get vaccinated as soon as she can. Pt states no concerns getting resources once home. Gwendolyn MATA CM Original Note: ADOLFO MORTON Assessment: Initial transition planning/care coordination assessment. ADOLFO MORTON introduced self and role at [facility], pt voices understanding and consents to assessment. Pt is A/Ox4 and answers all questions appropriately. Pt is currently on 2Lnc and speaks in full sentences. Care providers, pharmacy, and demographics verified. Presentation: Pt currently being treated for UTI w/ macrobid, pt c/o weak and confused Admitting dx: COVID, hypoxia, bilat pna PCP: Xi Specialists: [facility] arthritis clinic Preferred Pharmacy: [facility] Insurance: [employer] Prescription Benefit: Pt states no Rx coverage but states no concerns and states gets reimbursed for some meds. Living Will/HPOA: Pt states does not have LW/HPOA and declines AD info at this time. LNOK: John Roopay, hsuband; Nenita Díazr, daughter Living Arrangements: Pt states lives with in mobile home and states no concerns at home. Pt states is independent with ADL's. Transportation: Pt states drives self and states no transportation concerns. DME/HHC: Pt states has [facility] at home but does not use and states no need for any further DME. Pt states no preference for DME, if qualifies for home oxygen. Pt states no hx of HHC or SNF. Pt states no concerns with going home at time of discharge. 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 Pt states does not smoke cigarettes or drink ETOH. Pt states no further concerns/needs. CM to follow for home oxygen testing and any further discharge planning/needs. Advised pt to ask for CM if any further questions/concerns/needs arise, voices understanding. Pt Goal: Home Plan: Home, pending home oxygen testing. Gwendolyn MATA CM
--- NOTE | 2021-03-29 14:12 | PN.HOSP_ITS ---
Subjective Subjective Patient was seen and examined. Admitted this morning. She is on 2 L of oxygen. Vitals remained stable. Labs reviewed, leukopenic. Urine Legionella and strep antigen negative. Rapid COVID-19 antigen is negative COVID-19 PCR is positive Patient is unvaccinated We will continue on IV remdesivir and Decadron Continue with empiric antibiotics for now Follow-up on sputum cultures Objective Data Objective Data Vital Signs: Vital Signs Temp Pulse Resp BP Pulse Ox 98.9 F 63 18 110/64 98 03/29/21 12:11 03/29/21 12:11 03/29/21 12:11 03/29/21 12:11 03/29/21 12:11 Oxygen Flow Rate (L/min) 2 Oxygen Delivery Method Nasal Cannula Weight: 117 kg Body Mass Index (BMI) 40.4 Intake & Output: Intake and Output for Last 24 Hours 03/27/21 03/28/21 03/29/21 23:59 23:59 23:59 Intake Total 1050 / 1050 1605 / 1605 Output Total 750 / 750 Balance 1050 / 1050 855 / 855 Lab / Micro Data Result Diagrams: 03/29/21 05:50 03/29/21 05:50 Labs: Laboratory Results - last 24 hr 03/28/21 21:05: Urine Color Yellow, Urine Clarity Sl. Cloudy, Urine pH 6.0, Ur Specific [place] 1.015, Urine Protein 100 H, Urine Glucose (UA) Normal, Urine Ketones 5 H, Urine Occult Blood 10 H, Urine Nitrite Negative, Urine Bilirubin Negative, Urine Urobilinogen 1 H, Ur Leukocyte Esterase 25 H, Urine RBC 0-5 SEE N, Urine WBC 0-5 SEEN, Ur Squamous Epith Cells 0-5 SEEN, Ur Transition Epith Cell 0-5 SEEN, Urine Bacteria 0 SEEN, Urine Mucus 0 SEEN 03/28/21 21:30: WBC 3.1 L, RBC 4.82, Hgb 14.4, Hct 45.1, MCV 93.6, MCH 29.9, MCHC 31.9 L, RDW Std Deviation 44.6 H, RDW Coeff of [place] 13.0, Plt Count 200, MPV 10.8, Immature Gran % (Auto) 0.300, Neut % (Auto) 75.3 H, Lymph % (Auto) 20.6, [place] % (Auto) 3.5, Eos % (Auto) 0.0, Baso % (Auto) 0.3, Absolute Neuts (auto) 2.3, Absolute Lymphs (auto) 0.64 L, Nucleated RBC % 0, Differential Comment SCANNED 03/28/21 21:30: PT 12.9, INR 1.0, APTT 34.2 03/28/21 21:30: Sodium 132 L, Potassium 4.2, Chloride 99, Carbon Dioxide 26.0, Anion Gap 7, BUN 13, Creatinine 1.10 H, Estim Creat Clear Calc 48.37, Est GFR (MDRD) Af Amer 64, Est GFR (MDRD) Non-Af 53 L, BUN/Creatinine Ratio 11.8, Glucose 99, Calcium 9.1, Total Bilirubin 0.70, AST 54 H, ALT 28, Alkaline Phosphatase 69, Total Protein 10.1 H, Albumin 3.5, Globulin 6.6 H, Albumin/Globulin Ratio 0.5 L 03/28/21 21:30: Lactic Acid 1.5 03/28/21 21:30: D-Dimer Quant (PE/DVT) 1.93 H* 03/28/21 21:30: Magnesium 2.5, Ferritin 582 H, Lactate Dehydrogenase 631 H, C- React Prot Ext Range 124.00 H 03/28/21 21:30: B-Natriuretic Peptide 22.0 03/28/21 23:58: COVID-19 (MARTA) Detected 03/29/21 01:15: Procalcitonin 0.26 H 03/29/21 05:50: WBC 1.9 L, RBC 3.75 L, Hgb 11.3 L, Hct 35.0 L, MCV 93.3, MCH 30.1, MCHC 32.3, RDW Std Deviation 45.4 H, RDW Coeff of [place] 13.2, Plt Count 160, MPV 10.6, Immature Gran % (Auto) 0.500, Neut % (Auto) 76.0 H, Lymph % (Auto) 20.4, [place] % (Auto) 3.1, Eos % (Auto) 0.0, Baso % (Auto) 0.0, Absolute Neuts (auto) 1.5 L, Absolute Lymphs (auto) 0.39 L, Nucleated RBC % 0, Diff Path Review November03/29/21 05:50: Sodium 135 L, Potassium 4.2, Chloride 105, Carbon Dioxide 23.0, Anion Gap 7, BUN 13, Creatinine 0.73, Estim Creat Clear Calc 75.71, Est GFR (MDRD) Af Amer 102, Est GFR (MDRD) Non-Af 85, BUN/Creatinine Ratio 17.7, Glucose 150 H, Calcium 7.8 L, Total Bilirubin 0.30, AST 44 H, ALT 22, Alkaline Phosphatase 50, Total Protein 7.5, Albumin 2.5 L, Globulin 5.0 H, Albumin/Globulin Ratio 0.5 L Micro: Microbiology 03/28/21 23:58 Mucosa - Nasopharyngeal Respiratory Panel (PCR) - Final 03/28/21 21:05 Urine Catheter - Catheter Legionella Antigen - Final 03/28/21 21:05 Urine Catheter - Catheter Streptococcus pneumoniae Antigen (M - Final 03/28/21 22:50 Nasal Secretion SARS-CoV-2 Antigen (Rapid) - Final Radiography Diagnostic Testing: Radiology Impression Chest X-Ray 03/28/21 20:58 IMPRESSION: Hazy bilateral airspace disease suspicious for pneumonia including atypical or viral pneumonia. at 2315 Reported and signed by: Slava Montero MD Electronically Signed: Slava Montero MD at 23:14 EDT Tel , Service support , Brain CT 03/28/21 22:56 IMPRESSION: No acute intracranial findings. Pansinusitis. Individualized dose optimization techniques were used for this CT. at 2334 Reported and signed by: Slava Montero MD Electronically Signed: Slava Montero MD at 23:33 EDT Tel , Service support , ADDENDUM: 03/28/21 2344 IMPRESSION: No acute intracranial findings. Pansinusitis. Individualized dose optimization techniques were used for this CT. at 2334 Reported and signed by: Slava Montero MD N.B. : The above Results were Read Back by Slava Montero MD to Dr. Nabor DO, and understanding confirmed on 03/28/2021 23:37:22 (ET). Electronically Signed: Slava Montero MD at 23:33 EDT Tel , Service support , Chest CTA 03/29/21 01:27 IMPRESSION: 1. No central pulmonary embolism is identified. The remaining pulmonary arteries cannot be evaluated due to artifact and suboptimal opacification. 2. Consolidative infiltrates throughout both lungs consistent with pneumonia. Consider COVID-19 pneumonia. ASSESSMENT: ABNORMAL report - There are abnormal findings in this report which may be related or unrelated to the reason for the exam. Electronically Signed: Jeff Christianson MD at 4:08 EDT Tel , Service support ,
[2021-03-30] VITALS (16 sets, daily range): BP systolic 101–131; BP diastolic 61–80; PULSE 58–88; RESP 16–26; TEMP 36.6–36.8; O2SAT 90–96
[2021-03-30 07:19] LABS: Absolute Lymphocyte Count 0.64 X10^3/uL (0.83-4.51); Basophil# 0.01 X10^3/uL; Basophil% 0.3 % (0-1); Hematocrit 37.6 % (37-47); Hemoglobin 11.9 g/dL (12.0-15.0); Lymphocyte # 0.64 X10^3/ul (0.83-4.51); Lymphocyte % 16.8 % (19-41); Mean Corp Hgb Conc 31.6 g/dL (32-36); Mean Corpuscular Volume 94.7 fL (81-99); Mean Platelet Vol. 11.2 fl (6.2-12.0); Monocyte# 0.16 X10^3/uL; Monocyte% 4.2 % (0-10); NRBC Flagged by Analyzer 0 % (0-5); Neutrophil % 78.4 % (47-70); Platelet Count 206 K/mm3 (150-450); RBC Distribution Width CV 13.2 % (11.6-14.6); RBC Distribution Width SD 45.9 fl (35.1-43.9); Red Blood Count 3.97 M/mm3 (4.2-5.4); White Blood Count 3.8 K/mm3 (4.4-11.0)
[2021-03-30 07:58] LABS: ALB/GLOB Ratio 0.5 RATIO (0.9-2.4); AST(SGOT) 45 U/L (15-37); Alanine Aminotransfer ALT/SGPT 28 U/L (13-56); Albumin, Serum 2.4 g/dL (3.2-5.0); Alkaline Phosphatase 51 U/L (45-117); Anion Gap 9 (5-15); BUN 17 mg/dL (7-18); BUN/Creat Ratio 25.9 RATIO (10-20); Calcium,Total 8.1 mg/dL (8.5-10.1); Chloride 106 mmol/L (98-107); Creatinine, Serum 0.66 mg/dL (0.55-1.02); EST Glomerular Filtration Rate 96 mL/min (>60); Est Glom Filt Rate - Afr Amer 116 mL/min (>60); Estimated Creatinine Clearance 83.74 ml/min; Globulin 5.1 g/dL (2.2-4.2); Glucose 113 mg/dL (74-106); Potassium 4.5 mmol/L (3.5-5.1); Protein, Total 7.5 g/dL (6.4-8.2); Sodium Level 140 mmol/L (136-145)
[2021-03-30] MEDS: Enoxaparin 30 MG/0.3 ML Syringe SC ×2 (09:42→21:01)
[2021-03-30] MEDS: dexAMETHasone 4 MG/ML Vial 6 MG IV (09:42)
[2021-03-30] MEDS: Albuterol 2.5 MG/3 ML VIAL.NEB. INHALATION (10:13)
--- NOTE | 2021-03-30 14:29 | PCM.PN.HOSP ---
Subjective Subjective Patient was seen and examined. No new complaint. Objective Data Objective Data Vital Signs: Vital Signs Temp Pulse Resp BP Pulse Ox 98.1 F 72 18 105/67 94 03/30/21 14:03 03/30/21 14:03 03/30/21 14:03 03/30/21 14:03 03/30/21 14:03 Oxygen Flow Rate (L/min) 4 Oxygen Delivery Method Nasal Cannula Weight: 116.9 kg Body Mass Index (BMI) 40.4 Intake & Output: Intake and Output for Last 24 Hours 03/28/21 03/29/21 03/30/21 23:59 23:59 23:59 Intake Total 1050 / 1050 2445 / 2445 520 / 520 Output Total 2950 / 2950 1400 / 1400 Balance 1050 / 1050 -505 / -505 -880 / -880 Lab / Micro Data Result Diagrams: 03/30/21 05:20 03/30/21 05:20 Labs: Laboratory Results - last 24 hr 03/30/21 05:20: WBC 3.8 L, RBC 3.97 L, Hgb 11.9 L, Hct 37.6, MCV 94.7, MCH 30.0, MCHC 31.6 L, RDW Std Deviation 45.9 H, RDW Coeff of Megan 13.2, Plt Count 206, MPV 11.2, Immature Gran % (Auto) 0.300, Neut % (Auto) 78.4 H, Lymph % (Auto) 16.8 L, [place] % (Auto) 4.2, Eos % (Auto) 0.0, Baso % (Auto) 0.3, Absolute Neuts (auto) 3.0, Absolute Lymphs (auto) 0.64 L, Nucleated RBC % 0 03/30/21 05:20: Sodium 140, Potassium 4.5, Chloride 106, Carbon Dioxide 25.0, Anion Gap 9, BUN 17, Creatinine 0.66, Estim Creat Clear Calc 83.74, Est GFR (MDRD) Af Amer 116, Est GFR (MDRD) Non-Af 96, BUN/Creatinine Ratio 25.9 H, Glucose 113 H, Calcium 8.1 L, Total Bilirubin 0.40, AST 45 H, ALT 28, Alkaline Phosphatase 51, Total Protein 7.5, Albumin 2.4 L, Globulin 5.1 H, Albumin/Globulin Ratio 0.5 L Micro: Microbiology 03/28/21 21:05 Urine, Catheterized Urine Culture - Preliminary Culture exhibits no growth. 03/28/21 23:58 Mucosa - Nasopharyngeal Respiratory Panel (PCR) - Final 03/28/21 21:05 Urine Catheter - Catheter Legionella Antigen - Final 03/28/21 21:05 Urine Catheter - Catheter Streptococcus pneumoniae Antigen (M - Final 03/28/21 22:50 Nasal Secretion SARS-CoV-2 Antigen (Rapid) - Final Physical Exam Narrative Physical exam: General: Alert, Oriented x3, Cooperative, in mild respiratory distress, on 4 L of oxygen HEENT: Atraumatic Oral: Moist Mucosa Neck: Supple Lungs: Clear to auscultation Cardiovascular: HS I+II, regular, no murmurs Abdomen: Bowel Sounds Present, Soft, Non Tender Extremities: Bilateral trace edema Assessment & Plan Assessment/Plan (1) Acute respiratory failure with hypoxia: (2) Suspected COVID-19 virus infection: (3) Encephalopathy acute: PLAN: 1. Acute hypoxic respiratory failure secondary to acute COVID-19 pneumonia Patient is currently on 4 L of oxygen Admitting chest x-ray and CTA of the lungs are suggestive of bilateral infiltrates Admitting COVID-19 rapid antigen is negative Admitting COVID-19 PCR is positive Patient is not vaccinated Started on Decadron and remdesivir Urine Legionella and streptococcal antigen are negative We will give trial of Lasix 40 mg IV x1 Repeat blood work in a.m. 2. Acute metabolic encephalopathy secondary to #1, resolved 3. Rest of chronic medical conditions include rheumatoid arthritis, Sjogren's disease, asthma, morbid obesity remained stable Continue hydroxychloroquine Charges/Coding Visit Charges Inpatient E&M: 43815 Subs Hosp L2
[2021-03-30] MEDS: Furosemide 40 MG/4 ML Vial IV (15:26)
[2021-03-30] MEDS: Ipratropium/Albuterol Sulfate 3 ML AMPUL.NEB INHALATION (18:57)
[2021-03-31] VITALS (16 sets, daily range): BP systolic 100–138; BP diastolic 51–96; PULSE 57–89; RESP 16–30; TEMP 36.2–37; O2SAT 88–96
[2021-03-31] MEDS: Ipratropium/Albuterol Sulfate 3 ML AMPUL.NEB INHALATION ×3 (06:41→14:50)
[2021-03-31 07:14] LABS: Absolute Lymphocyte Count 0.66 X10^3/uL (0.83-4.51); Absolute Neutrophil Count 4.2 X10^3/uL (2.0-7.7); Hematocrit 36.4 % (37-47); Hemoglobin 11.9 g/dL (12.0-15.0); Lymphocyte # 0.66 X10^3/ul (0.83-4.51); Lymphocyte % 12.9 % (19-41); Mean Corp Hgb Conc 32.7 g/dL (32-36); Mean Corpuscular Hgb 30.4 pg (27.0-32.0); Mean Corpuscular Volume 93.1 fL (81-99); Mean Platelet Vol. 10.8 fl (6.2-12.0); Monocyte# 0.21 X10^3/uL; Monocyte% 4.1 % (0-10); NRBC Flagged by Analyzer 0 % (0-5); Neutrophil # 4.24 X10^3/uL (2.7-7.7); Neutrophil % 82.6 % (47-70); Platelet Count 204 K/mm3 (150-450); RBC Distribution Width CV 13.2 % (11.6-14.6); RBC Distribution Width SD 45.1 fl (35.1-43.9); Red Blood Count 3.91 M/mm3 (4.2-5.4); White Blood Count 5.1 K/mm3 (4.4-11.0)
[2021-03-31 07:42] LABS: ALB/GLOB Ratio 0.5 RATIO (0.9-2.4); AST(SGOT) 45 U/L (15-37); Alanine Aminotransfer ALT/SGPT 38 U/L (13-56); Albumin, Serum 2.4 g/dL (3.2-5.0); Alkaline Phosphatase 53 U/L (45-117); Anion Gap 8 (5-15); BUN 17 mg/dL (7-18); BUN/Creat Ratio 27.1 RATIO (10-20); Calcium,Total 8.2 mg/dL (8.5-10.1); Chloride 105 mmol/L (98-107); Creatinine, Serum 0.63 mg/dL (0.55-1.02); EST Glomerular Filtration Rate 101 mL/min (>60); Est Glom Filt Rate - Afr Amer 123 mL/min (>60); Estimated Creatinine Clearance 87.73 ml/min; Glucose 102 mg/dL (74-106); Protein, Total 7.4 g/dL (6.4-8.2); Sodium Level 139 mmol/L (136-145)
[2021-03-31] MEDS: dexAMETHasone 4 MG/ML Vial 6 MG IV (09:35)
[2021-03-31] MEDS: 0.9% Saline Lock 10 ML Syringe IV (09:35)
[2021-03-31] MEDS: Enoxaparin 30 MG/0.3 ML Syringe SC (09:35)
[2021-03-31 14:08] LABS: Pathologist Review Reviewed
--- NOTE | 2021-03-31 14:23 | PCM.DC ---
Discharge Instructions Diet Discharge Diet: No restrictions Activity Discharge Activity: Return to Normal Activity Additional Activity Instructions:: Self isolate for at least 20 days since symptoms began (03/27-04/16/2021) AND at least one day (24 hours) have passed since resolution of fever without the use of fever-reducing agents AND improvement of symptoms (e.g., cough, shortness of breath) When around people in the same room, wear a face mask. Individuals also in the room should wear a mask. If possible, use a different bathroom and bedroom. Perform adequate hand hygiene. Avoid sharing dishes, glasses, etc. You may get the COVID 19 vaccine after you have completed quarantine. Oxygen 2 liters/min at rest then 4 liters/min with exertion. Dressing / Incision Call your doctor if you observe: Fever of 101 or Higher and Shortness of breath Follow Up Care Test Results: Test results from this visit will be discussed in further detail at your follow-up appointment, if applicable. Discharge Plan Admission Admit Date/Time: 03/28/21 23:41 Primary Reason for Your Visit: COVID 19 Attending Provider: Fredo Palumbo Primary Care Provider: Jacqueline Layne Discharge Orders/Prescriptions Prescriptions: New dexamethasone 6 mg tablet 6 mg PO DAILY Qty: 7 RF: 0 albuterol sulfate [ProAir HFA] 90 mcg/actuation HFA aerosol inhaler 2 puff inhalation Q6H PRN (Reason: shortness of breath or wheezing) Qty: 6.7 RF: 0 Continued cholecalciferol (vitamin D3) 1,250 mcg (50,000 unit) capsule 50,000 unit PO QWEEK RF: 0 hydroxychloroquine 200 mg tablet 200 mg PO DAILY RF: 0 Referrals / Follow Up: Jacqueline Layne DO [Primary Care Provider] - See Referral Note (in 3-4 weeks. ) Disposition Disposition (needs filled in before D/C Order can be placed): Home, Self Care
--- NOTE | 2021-03-31 14:32 | PCM.DC.SUM ---
Providers Date of Admission: 03/28/21 Primary Care Physician: Dr. Jacqueline Layne, DO Reason For Visit: ACUTE HYPOXIA, BL PNA, SUSPECTED COVID, ENCEPHALOP Diagnosis Discharge Diagnosis (1) Acute respiratory failure with hypoxia: Status: Acute Code(s): J96.01 - Acute respiratory failure with hypoxia (2) Suspected COVID-19 virus infection: Status: Acute Code(s): Z20.822 - Contact with and (suspected) exposure to COVID-19 (3) Encephalopathy acute: Status: Acute Code(s): G93.40 - Encephalopathy, unspecified Medications at Discharge Home Medications cholecalciferol (vitamin D3) 50,000 unit PO QWEEK 03/28/21 hydroxychloroquine 200 mg PO DAILY 03/28/21 albuterol sulfate [ProAir HFA] 2 puff INHALATION Q6H PRN #6.7 g 03/31/21 dexamethasone 6 mg PO DAILY #7 tab 03/31/21 Hospital Course Operations None Procedures None Summary of Care Provided Minutes Spent on Discharge: 32 Hospital Course: This is a 65 year old female presents with confusion. Initially felt to be a UTI, pt subsequently found to + for COVID 19 on PCR. Onset likely the . She was started on dexamethasone and remdesivir. She has remained stable during this hospitalization. Pt will need oxygen 2 l/m with rest and 4l/m with exertion. She will complete a 10-day course of dexamethasone. Pt is unvaccinated. She is advised to obtain the vaccination after her quarantine is complete (04/16/2021). Pt advised to return if her breathing gets worse, but fortunately, she has not demonstrated any worsening during this hospitalization. Physical Exam Const alert Constitutional Narrative: on commode. no respiratory distress. no conversational dyspnea. Neuro oriented x3 Sensorium / Orientation: awake and alert Weight / BMI Weight Weight: 116.9 kg Body Mass Index (BMI) 40.4 ABG / Lab / Microbiology Data Result Diagrams: 03/31/21 06:58 03/31/21 06:58 Laboratory: Laboratory Results - last 24 hr 03/29/21 05:50: Diff Path Review Reviewed 03/31/21 06:58: WBC 5.1, RBC 3.91 L, Hgb 11.9 L, Hct 36.4 L, MCV 93.1, MCH 30.4, MCHC 32.7, RDW Std Deviation 45.1 H, RDW Coeff of Megan 13.2, Plt Count 204, MPV 10.8, Immature Gran % (Auto) 0.400, Neut % (Auto) 82.6 H, Lymph % (Auto) 12.9 L, [place] % (Auto) 4.1, Eos % (Auto) 0.0, Baso % (Auto) 0.0, Absolute Neuts (auto) 4.2, Absolute Lymphs (auto) 0.66 L, Nucleated RBC % 0 03/31/21 06:58: Sodium 139, Potassium 4.0, Chloride 105, Carbon Dioxide 26.0, Anion Gap 8, BUN 17, Creatinine 0.63, Estim Creat Clear Calc 87.73, Est GFR (MDRD) Af Amer 123, Est GFR (MDRD) Non-Af 101, BUN/Creatinine Ratio 27.1 H, Glucose 102, Calcium 8.2 L, Total Bilirubin 0.50, AST 45 H, ALT 38, Alkaline Phosphatase 53, Total Protein 7.4, Albumin 2.4 L, Globulin 5.0 H, Albumin/Globulin Ratio 0.5 L Microbiology: Microbiology 03/28/21 21:05 Urine, Catheterized Urine Culture - Final Culture exhibits no growth. 03/28/21 22:19 Blood Culture (Wb) - Left Hand Blood Culture - Preliminary No growth in 48 hours. 03/28/21 21:30 Blood Culture (Wb) - Left Forearm Blood Culture - Preliminary No growth in 48 hours. 03/28/21 23:58 Mucosa - Nasopharyngeal Respiratory Panel (PCR) - Final 03/28/21 21:05 Urine Catheter - Catheter Legionella Antigen - Final 03/28/21 21:05 Urine Catheter - Catheter Streptococcus pneumoniae Antigen (M - Final 03/28/21 22:50 Nasal Secretion SARS-CoV-2 Antigen (Rapid) - Final D/C Instructions Discharge Diet: No restrictions Additional Activity Instructions: Self isolate for at least 20 days since symptoms began (03/27-04/16/2021) AND at least one day (24 hours) have passed since resolution of fever without the use of fever-reducing agents AND improvement of symptoms (e.g., cough, shortness of breath) When around people in the same room, wear a face mask. Individuals also in the room should wear a mask. If possible, use a different bathroom and bedroom. Perform adequate hand hygiene. Avoid sharing dishes, glasses, etc. You may get the COVID 19 vaccine after you have completed quarantine. Oxygen 2 liters/min at rest then 4 liters/min with exertion. Call your doctor if you observe: Fever of 101 or Higher and Shortness of breath Meaningful Use Info Meaningful Use Diagnoses (Choose all that apply): None applicable Discharge Plan Admission Admit Date/Time: 03/28/21 23:41 Primary Reason for Your Visit: COVID 19 Attending Provider: Fredo Palumbo Primary Care Provider: Jacqueline Layne Discharge Orders/Prescriptions Prescriptions: New dexamethasone 6 mg tablet 6 mg PO DAILY Qty: 7 RF: 0 albuterol sulfate [ProAir HFA] 90 mcg/actuation HFA aerosol inhaler 2 puff inhalation Q6H PRN (Reason: shortness of breath or wheezing) Qty: 6.7 RF: 0 Continued cholecalciferol (vitamin D3) 1,250 mcg (50,000 unit) capsule 50,000 unit PO QWEEK RF: 0 hydroxychloroquine 200 mg tablet 200 mg PO DAILY RF: 0 Referrals / Follow Up: Jacqueline Layne DO [Primary Care Provider] - See Referral Note (in 3-4 weeks. ) Disposition Disposition (needs filled in before D/C Order can be placed): Home, Self Care Charges/Coding Visit Charges Inpatient E&M: 59049 Disch Hosp
--- NOTE | 2021-03-31 14:36 | CASEMGMT ---
Per therapy, no need for any further therapy. Pt does qualify for home oxygen 2L at rest and 4L w/ exertion and had stated previous preference for [employer]. Referral faxed to [facility] and pt to use one of the e-tanks already provided to [facility]. Call to [facility] to notify of same, voice understanding. Pt voices no further questions/concerns/needs. Gwendolyn AMTA CM
--- NOTE | 2021-03-31 15:15 | PHA.DC.MC ---
Pharmacy Service has performed discharge medication reconciliation and counseling for this patient. Patient counseled via telephone due to COVID precautions. Patient stated she has a brand new albuterol inhaler at home and does not want to fill the new one. This [facility] notified retail pharmacy. 1. ALBUTEROL INHALER 2PUFFS Q6H PRN SOB/WHEEZING 2. DEXAMETHASONE 6MG PO DAILY X 7 DAYS The patient's discharge medication list was reviewed for discrepancies and discrepancies were resolved. Home Medications cholecalciferol (vitamin D3) 50,000 unit PO QWEEK 03/28/21 hydroxychloroquine 200 mg PO DAILY 03/28/21 albuterol sulfate [ProAir HFA] 2 puff INHALATION Q6H PRN #6.7 g 03/31/21 dexamethasone 6 mg PO DAILY #7 tab 03/31/21 The patient was counseled on the following discharge medications and changes in medications for homegoing were reviewed. The Reason for Use, instructions for use, and potential side effects were reviewed for all new medications. The patient's questions regarding all of their medications were answered. The patient was able to verbally demonstrate an understanding of their discharge medications.
--- NOTE | 2021-04-01 15:29 | CASEMGMT ---
ADOLFO MORTON Discharge F/U Phone Call LACE: 11 Strata: 3 Discharge date: 03/31/21 Call date: 04/01/21 Call time: 1530 Admission dx: Acute hypoxia, bilat pna, susp COVID, encephalopathy Pt states has been 'doing ok' since discharge. Pt states no questions with discharge medication/instructions. Pt states has f/u appt scheduled and plans to keep. Pt states no concerns with oxygen set up and states her levels have been good. Pt states no suggestions for [facility] and states 'Thank you guys for all you did for me.' Pt voices no further questions/concerns/needs. SStaten ADOLFO MORTON
== END 2021-03-31 16:42 | disposition home or self-care (01) | DRG 177 ==
LOC: ED 23:00 → PCU 23:53
PROVIDERS: Internal Medicine; Admitting Provider Family Medicine; Emergency Provider Emergency Medicine; PCP Family Medicine
DX: U07.1 COVID-19 (principal); J12.82 Pneumonia due to coronavirus disease 2019; J96.01 Acute respiratory failure with hypoxia; G93.41 Metabolic encephalopathy; Z68.41 Body mass index [BMI] 40.0-44.9, adult; N39.0 Urinary tract infection, site not specified; E66.01 Morbid (severe) obesity due to excess calories; M79.7 Fibromyalgia; J45.909 Unspecified asthma, uncomplicated; M06.9 Rheumatoid arthritis, unspecified; M35.00 Sjogren syndrome, unspecified; Z28.3 Underimmunization status; D70.9 Neutropenia, unspecified; R50.81 Fever presenting with conditions classified elsewhere; Z90.710 Acquired absence of both cervix and uterus
CPT/HCPCS: 36415; 51702; 70450; 71045; 71275; 80053; 81001; 82728; 83605; 83615; 83735; 83880; 84145; 85025; 85379; 85610; 85730; 86140; 87040; 87086; 87426; 87449; 87633; 87635; 93005; 94640; 97162; 97165; 97530; 97535; 99251; 99285; J7030; J7050; Q9967; U0005; A4216; G0463; J1940; U0003

== ENCOUNTER 2021-04-05 13:45 | Inpatient (IN) | payer OTHER, SELFPAY ==
[2021-04-05] VITALS (9 sets, daily range): BP systolic 116–130; BP diastolic 55–93; PULSE 90–115; RESP 27–36; TEMP 36.6–37; O2SAT 93–98; BMI 40.6
--- NOTE | 2021-04-05 14:00 | EKG12_ITS ---
Test Reason : WEAKNESS Blood Pressure : / mmHG Vent. Rate : 109 BPM Atrial Rate : 109 BPM P-R Int : 146 ms QRS Dur : 080 ms QT Int : 356 ms P-R-T Axes : 017 044 012 degrees QTc Int : 479 ms Sinus tachycardia Nonspecific ST and T wave abnormality Abnormal ECG Confirmed by FAWAD DICKEY, DAMION ([id number]), medical editor BAYLEE XAVIER ([id number]) on 04/07/2021 1:21:24 PM Referred By: AVIS Confirmed By:DAMION CELESTIN MD
--- NOTE | 2021-04-05 14:06 | CT_ITS ---
STUDY: CTA CHEST REASON FOR EXAM: Female, 65 years old. Shortness of breath Covid pneumonia increasing weakness RADIATION DOSAGE (If Supplied By Facility): CTDIvol = ( 24.47 ) mGy, DLP = ( 671.58 ) mGycm TECHNIQUE: The examination was performed with the intravenous administration of IV 100mL Isovue-370. Post-processing of the angiographic images was performed, with multiplanar reformation and 3D reconstruction. Individualized dose optimization techniques were used for this CT. COMPARISON: None. FINDINGS: Examination is technically suboptimal due to patient''s large body habitus and respiratory motion artifact. Diagnostic information is available. There is no pulmonary embolism in the main, lobar or some proximal segmental arteries. Subsegmental branches are not evaluable. There is extensive ongoing Covid pneumonia. Evaluation for pulmonary edema is not possible due to poor visualization of interstitium. There are no pleural effusions. Aorta is normal. Cardiac chambers are normal in size and shape. Pericardium is normal. Liver is fatty infiltrated and contains an incompletely visualized partially calcified lesion in the dome. This is poorly seen and cannot be characterized. CT/CTA Chest W/WO Contrast IMPRESSION: 1. No pulmonary embolism. 2. Extensive ongoing Covid pneumonia. 3. Incompletely characterized probably benign hepatic lesion. Refer to outpatient follow-up hepatic imaging for more definitive characterization after complete resolution of acute illness. Electronically Signed: Marquise Rock MD at 16:06 EDT Tel , Service support ,
[2021-04-05 14:21] LABS: Absolute Lymphocyte Count 0.49 X10^3/uL (0.83-4.51); Absolute Neutrophil Count 6.8 X10^3/uL (2.0-7.7); Basophil# 0.01 X10^3/uL; Basophil% 0.1 % (0-1); Eosinophil# 0.03 X10^3/uL; Eosinophils% 0.4 % (0-5); Hematocrit 44.8 % (37-47); Hemoglobin 14.8 g/dL (12.0-15.0); Lymphocyte # 0.49 X10^3/ul (0.83-4.51); Lymphocyte % 6.4 % (19-41); Mean Corpuscular Hgb 30.1 pg (27.0-32.0); Mean Corpuscular Volume 91.1 fL (81-99); Mean Platelet Vol. 10.7 fl (6.2-12.0); Monocyte% 3.9 % (0-10); NRBC Flagged by Analyzer 0 % (0-5); Neutrophil # 6.79 X10^3/uL (2.7-7.7); Neutrophil % 88.3 % (47-70); POSITIVE DIFFERENTIAL YES; Platelet Count 298 K/mm3 (150-450); RBC Distribution Width CV 12.9 % (11.6-14.6); RBC Distribution Width SD 42.8 fl (35.1-43.9); Red Blood Count 4.92 M/mm3 (4.2-5.4); White Blood Count 7.7 K/mm3 (4.4-11.0)
[2021-04-05 14:35] LABS: Differential Indicated SCAN CRITERIA MET
--- NOTE | 2021-04-05 14:50 | EDS_ITS ---
HPI History of Present Illness Chief Complaint: Weakness Informant: patient Narrative Narrative: Patient presents with generalized weakness. She states she has Covid. She likely started symptoms on the . She was diagnosed in the hospital here recently. She has been home. She states she is getting weaker and weaker. I asked her to explain what she means by this. She is not able to really describe this. I cannot get from her if she is unable to walk or move. It sounds like she does have generalized weakness. Should her appetite is down and I cannot get her to define how much she eats or drinks. She is short of breath and coughing but states her oxygen levels are good and she does have an O2 sat. She states they are in the 90s. She takes 2 L normally and 4 when she walks. Her evidently has Covid at home also. I cannot get anything that specifically makes her symptoms better or worse. She states she just cannot function. I cannot get from her that there is any focal neuro complaint. PFSH [facility] Medical History Asthma Fibromyalgia H/O Sjogren's disease Rheumatoid arthritis UTI (urinary tract infection) Home Medications cholecalciferol (vitamin D3) 50,000 unit PO QWEEK 03/28/21 [History Last Taken Unknown] hydroxychloroquine 200 mg PO DAILY 03/28/21 [History Last Taken Unknown] albuterol sulfate [ProAir HFA] 2 puff INHALATION Q6H PRN #6.7 g 03/31/21 [Rx Last Taken Unknown] dexamethasone 6 mg PO DAILY #7 tab 03/31/21 [Rx Last Taken Unknown] Allergy/AdvReac Type Severity Reaction Status Date / Time levofloxacin [From Levaquin] Allergy PT UNSURE Verified 04/05/21 13:47 OF REACTION Surgical History History of hysterectomy Social History household members: spouse Smoking Status: Never smoker alcohol intake: current alcohol intake frequency: other substance use type: does not use ROS ROS ED Constitutional Constitutional ED: Reports chills and fever(s) Eyes Eyes: Denies blurry vision or change in vision ENT ENT ED: Reports rhinorrhea; Denies sore throat Cardiovascular Cardiovascular: Denies chest pain or palpitations Respiratory/Chest Respiratory/Chest: Reports cough and dyspnea; Denies sputum Gastrointestinal Gastrointestinal: Reports diarrhea and nausea; Denies abdominal pain, melena or vomiting Genitourinary Genitourinary ED: Reports dysuria and urinary frequency Musculoskeletal Musculoskeletal: Reports myalgias; Denies back pain or neck pain Integumentary Denies rash Neurologic Neurologic: Denies headache(s), paresthesias or weakness Psychiatric Psychiatric: Denies anxiety or depression Endocrine Endocrinology: Denies polydipsia or polyuria Allergic/Immunologic Allergic/Immunologic ED: Denies urticaria EXAM Physical Exam Const Vital Signs: 04/05/21 13:47 04/05/21 13:52 04/05/21 14:12 Temperature 98 F 98 F Temperature Source Oral Oral Pulse Rate 115 H 115 H Respiratory Rate 34 H 34 H Respiratory Effort Respiratory Pattern Blood Pressure 130/93 H 130/93 H Blood Pressure Mean 105 105 Pulse Ox 93 93 Oxygen Delivery Method Nasal Cannula Nasal Cannula Nasal Cannula Oxygen Flow Rate (L/min) 2 2 2 04/05/21 14:40 04/05/21 16:00 Temperature 98.1 F 98.6 F Temperature Source Oral Oral Pulse Rate 107 H 95 Respiratory Rate 36 H 31 H Respiratory Effort Short of Breath Respiratory Pattern Tachypnea Blood Pressure 122/59 H 119/84 H Blood Pressure Mean 80 95 Pulse Ox 98 97 Oxygen Delivery Method Nasal Cannula Nasal Cannula Oxygen Flow Rate (L/min) 2 2 Positive well nourished and well developed General Appearance ED: well developed HEENT Reports dry mucous membranes Mouth ED: Yes dry mucous membranes Mouth: dry mucous membranes Eyes General Eye ED: Negative for pale conjunctiva or scleral icterus Neck no lymphadenopathy and no JVD Chest Wall inspection of chest normal Resp normal respiratory effort Auscultation: rhonchi Cardio regular rhythm Rate: tachycardic GI normal to inspection, nondistended, normoactive bowel sounds and non-tender Palpation: soft Back/Spine no CVA tenderness Extremity General Extremety ED: Negative for edema or tenderness General Extremity: Negative for edema Neuro oriented x3 Sensorium / Orientation: alert Psych mental status grossly normal Skin no rashes or lesions noted and no wounds MDM MDM MDM Narrative Medical decision making narrative: Patient's blood work does show an elevated hemoglobin from baseline. This is likely due to due to some dehydration. BUN to creatinine ratio is slightly above 20. Lactate is slightly elevated 2.2. Troponin is negative. Because the patient was tachypneic tachycardic and hypoxic off oxygen, we did do a CTA. This shows extensive Covid changes but no definitive signs of pulmonary embolus. We tried to get the patient up. She states she is just too weak and achy to move. She was able to sit on the bed. But we cannot get her up standing by herself. We were then able to get her up with assistance. We tried to have her take some steps but she felt too weak. We tried to just get her to walk in place and she was not able to do this. We could not stress her to see if she got hypoxic. Patient's was just admitted to the hospital with Covid so he is no longer at home helping her. We have contacted her daughter who has to be working and cannot stay home with her any longer to help. For this reason I cannot send her home if she is too weak to function independently. I discussed the case with the hospitalist and the patient will be admitted. Lab Data Attestation: I reviewed the patient's lab results. Labs: Laboratory Results - last 24 hr 04/05/21 04/05/21 04/05/21 14:05 14:05 14:40 WBC 7.7 RBC 4.92 Hgb 14.8 Hct 44.8 MCV 91.1 MCH 30.1 MCHC 33.0 RDW Std Deviation 42.8 RDW Coeff of Megan 12.9 Plt Count 298 MPV 10.7 Immature Gran % (Auto) 0.900 Neut % (Auto) 88.3 H Lymph % (Auto) 6.4 L Ada % (Auto) 3.9 Eos % (Auto) 0.4 Baso % (Auto) 0.1 Absolute Neuts (auto) 6.8 Absolute Lymphs (auto) 0.49 L Nucleated RBC % 0 Differential Comment SCANNED Sodium 134 L Potassium 4.3 Chloride 104 Carbon Dioxide 18.0 L Anion Gap 12 BUN 20 H Creatinine 0.96 Estim Creat Clear Calc 57.57 Est GFR (MDRD) Af Amer 75 Est GFR (MDRD) Non-Af 62 BUN/Creatinine Ratio 20.7 H Glucose 111 H Lactic Acid 2.2 H* Calcium 9.6 Total Bilirubin 1.30 H AST 132 H ALT 130 H Alkaline Phosphatase 81 Troponin I High Sens 16 Total Protein 9.9 H Albumin TNP Radiography Diagnostic Testing: Radiology Impression Chest CTA 04/05/21 14:06 IMPRESSION: 1. No pulmonary embolism. 2. Extensive ongoing Covid pneumonia. 3. Incompletely characterized probably benign hepatic lesion. Refer to outpatient follow-up hepatic imaging for more definitive characterization after complete resolution of acute illness. Electronically Signed: Marquise Rock MD at 16:06 EDT Tel , Service support , EKG Initial EKG: Comments: EKG done for dyspnea and generalized weakness read by me shows sinus rhythm with tachycardic rate at 109. No ventricular ectopy. She has diffuse nonspecific ST and T wave changes that are little bit more than 28 March EKG. She does have an S1Q3T3 but also had this on the . No evidence of infarct. SD interval, QRS duration are normal. QTc is toward longer than 479 ms. Discharge Plan Triage Chief Complaint: Weakness ED Provider: Real Davila Dx/Rx/DC Orders Clinical Impression: Pneumonia due to 2019-nCoV, Hypoxia, Inability to ambulate due to multiple joints, Dehydration Prescriptions: No Action cholecalciferol (vitamin D3) 1,250 mcg (50,000 unit) capsule 50,000 unit PO QWEEK RF: 0 hydroxychloroquine 200 mg tablet 200 mg PO DAILY RF: 0 dexamethasone 6 mg tablet 6 mg PO DAILY Qty: 7 RF: 0 albuterol sulfate [ProAir HFA] 90 mcg/actuation HFA aerosol inhaler 2 puff inhalation Q6H PRN (Reason: shortness of breath or wheezing) Qty: 6.7 RF: 0 Primary Care Provider: Jacqueline Layne Referrals: Jacqueline Layne DO [Primary Care Provider] - Disposition Disposition: Acute Care Hospital [facility]
[2021-04-05 14:59] LABS: AST(SGOT) 132 U/L (15-37); Alanine Aminotransfer ALT/SGPT 130 U/L (13-56); Alkaline Phosphatase 81 U/L (45-117); Anion Gap 12 (5-15); BUN 20 mg/dL (7-18); BUN/Creat Ratio 20.7 RATIO (10-20); Calcium,Total 9.6 mg/dL (8.5-10.1); Chloride 104 mmol/L (98-107); Creatinine, Serum 0.96 mg/dL (0.55-1.02); Differential Comment SCANNED; EST Glomerular Filtration Rate 62 mL/min (>60); Est Glom Filt Rate - Afr Amer 75 mL/min (>60); Estimated Creatinine Clearance 57.57 ml/min; Glucose 111 mg/dL (74-106); Potassium 4.3 mmol/L (3.5-5.1); Protein, Total 9.9 g/dL (6.4-8.2); Sodium Level 134 mmol/L (136-145); Troponin-I HS 16 pg/mL (3.0-54.0)
[2021-04-05 15:22] LABS: Lactic Acid 2.2 mmol/L (0.4-1.9)
--- NOTE | 2021-04-05 15:29 | ED.RN ---
jean carlos de jesus rn informed that lab called with lactic acid of 2.2.
--- NOTE | 2021-04-05 17:37 | HP.PCM.HOS_ITS ---
Documented by User: Jeff NEWTON 04/05/21 18:02 HPI - General General Date of Admission: 04/05/21 Date of Service: 04/05/21 Chief Complaint: Fatigue + lethargy HPI Narrative SHAYLA PIERRE is a 65 F who presents to the ED at [facility] on 04/05/2021 with a chief complaint of fatigue and lethargy x5 days. Patient reports that for the past 5 days she has become increasingly fatigued, lethargic and cannot care for herself at home. Patient endorses fatigue, lethargy, shortness of breath, diarrhea. Patient denies productive cough, sputum production, fever, chills, nausea/vomiting, or chest pain of note, patient was recently admitted on March 28 for a symptomatic Covid infection where she was given remdesivir and Decadron. Patient was subsequently discharged on the with a 7-day prescription of Decadron. It is unclear whether patient has been compliant with her Decadron prescription as she was unaware that she received the prescription when she discharged. Also, patient's was admitted to day 04/05 with symptomatic Covid and admitted to the ICU. Patient's respiratory rate is elevated at 25 to 30 breaths/min, currently satting 98% on 2 L via nasal cannula. Patient was also observed to be tachycardic, however rate is currently controlled. Patient is afebrile. CBC does not demonstrate a leukocytosis and is overall unremarkable. Sodium is 134. Lactate is elevated at 2.2. High-sensitivity troponin is within normal limits. CT-A obtained in the ED demonstrated no pulmonary embolism or arterial dissection, but was significant for extensive ongoing Covid pneumonia, with an incomplete benign hepatic lesion. Patient was given fluids while in the ED. [facility] Medical History Asthma Fibromyalgia H/O Sjogren's disease Rheumatoid arthritis UTI (urinary tract infection) Home Medications cholecalciferol (vitamin D3) 50,000 unit PO TH 03/28/21 [History Last Taken Unknown] hydroxychloroquine 200 mg PO DAILY 03/28/21 [History Last Taken Unknown] albuterol sulfate [ProAir HFA] 2 puff INHALATION Q6H PRN #6.7 g 03/31/21 [Rx Last Taken Unknown] dexamethasone 6 mg PO DAILY #7 tab 03/31/21 [Rx Last Taken Unknown] Allergy/AdvReac Type Severity Reaction Status Date / Time levofloxacin [From Levaquin] Allergy PT UNSURE Verified 04/05/21 13:47 OF REACTION Family History (Updated 04/05/21 @ 17:49 by Jeff NEWTON) Father Diabetes Mother Cancer Breast cancer Surgical History History of hysterectomy Social History household members: spouse Smoking Status: Never smoker alcohol intake: current alcohol intake frequency: other substance use type: does not use ROS Constitutional Constitutional: Reports fatigue and weakness; Denies anorexia, change in weight, chills, fever(s), malaise, night sweats or other Eyes Eyes: Denies blurry vision, change in eye color, change in vision, discharge from eye(s), double vision, erythema, eye pain, loss of vision or other ENT HEENT: Denies abnormal hearing, dysphagia, ear pain, epistaxis, headache(s), hearing loss, nasal congestion, nasal discharge, post nasal drip, sinus pressure, sore throat or other Cardiovascular Cardiovascular: Denies chest pain, claudication, dyspnea on exertion, edema, lightheadedness, orthopnea, palpitations, paroxysmal nocturnal dyspnea, rapid heart rate, syncope or other Respiratory/Chest Respiratory/Chest: Reports dyspnea, shortness of breath at rest and shortness of breath with exertion; Denies cough, excessive phlegm production, hemoptysis, productive cough, wheezing or other Gastrointestinal Gastrointestinal: Denies abdominal pain, coffee ground emesis, constipation, diarrhea, dyspepsia, hematemesis, hematochezia, loose stools, melena, nausea, vomiting or other Genitourinary Genitourinary: Denies burning urination, difficulty urinating, dysuria, hematuri a, nocturia, urinary frequency, urinary hesitancy, urinary incontinence, urinary urgency or other Musculoskeletal Musculoskeletal: Reports back pain, joint pain and myalgias; Denies arthralgias, joint stiffness, joint swelling, neck pain or other Neurologic Neurologic: Denies abnormal gait, abnormal speech, confusion, disequilibrium, dizziness, focal weakness, headache(s), numbness, paresthesias, seizure-like activity, seizures, syncope, tingling, tremor(s) or other Psychiatric Psychiatric: Denies anxiety, depression, homicidal ideation, suicidal ideation or other Endocrine Endocrinology: Denies change in body appearance, cold intolerance, excessive sweating, heat intolerance, polydipsia, polyuria or other Hematologic/Lymphatic Hematologic/Lymphatic: Denies anemia, easy bleeding, easy bruising, lymph adenopathy or other Allergic/Immunologic Allergic/Immunologic: Denies rhinitis, hives, eczemia, asthma or other Vital Signs Vital Signs Vital Signs: 04/05/21 13:47 04/05/21 13:52 04/05/21 14:12 Temperature 98 F 98 F Temperature Source Oral Oral Pulse Rate 115 H 115 H Respiratory Rate 34 H 34 H Respiratory Effort Respiratory Pattern Blood Pressure 130/93 H 130/93 H Blood Pressure Mean 105 105 Pulse Ox 93 93 Oxygen Delivery Method Nasal Cannula Nasal Cannula Nasal Cannula Oxygen Flow Rate (L/min) 2 2 2 04/05/21 14:40 04/05/21 16:00 04/05/21 17:23 Temperature 98.1 F 98.6 F 98.3 F Temperature Source Oral Oral Oral Pulse Rate 107 H 95 92 Respiratory Rate 36 H 31 H 27 H Respiratory Effort Short of Breath Respiratory Pattern Tachypnea Blood Pressure 122/59 H 119/84 H 116/55 L Blood Pressure Mean 80 95 75 Pulse Ox 98 97 98 Oxygen Delivery Method Nasal Cannula Nasal Cannula Nasal Cannula Oxygen Flow Rate (L/min) 2 2 2 Weight Weight: 259 lb 0.69 oz Body Mass Index (BMI) 40.6 Physical Exam Const alert and oriented x3 General Appearance: cooperative HEENT normocephalic, head/scalp atraumatic and hearing grossly normal bilaterally Eyes PERRL, EOMs intact bilaterally and conjunctivae normal Neck no lymphadenopathy, supple and no JVD Resp Effort and Inspection: abnormal respiratory pattern, tachypneic and labored Auscultation: rhonchi and diminished lung sounds Cardio regular rate, regular rhythm, no murmurs and no JVD GI normal to inspection, nondistended, normoactive bowel sounds, soft to palpation and non-tender Extremity normal to inspection, full ROM and no clubbing, cyanosis or edema Skin no rashes or lesions noted, no wounds, skin turgor normal and no jaundice Neuro CN's II-XII intact bilaterally Psych affect normal Results Lab / Micro Data Result Diagrams: 04/05/21 14:05 04/05/21 14:05 Labs: Laboratory Results - last 24 hr 04/05/21 14:05: WBC 7.7, RBC 4.92, Hgb 14.8, Hct 44.8, MCV 91.1, MCH 30.1, MCHC 33.0, RDW Std Deviation 42.8, RDW Coeff of Megan 12.9, Plt Count 298, MPV 10.7, Immature Gran % (Auto) 0.900, Neut % (Auto) 88.3 H, Lymph % (Auto) 6.4 L, [place] % (Auto) 3.9, Eos % (Auto) 0.4, Baso % (Auto) 0.1, Absolute Neuts (auto) 6.8, Absolute Lymphs (auto) 0.49 L, Nucleated RBC % 0, Differential Comment SCANNED 04/05/21 14:05: Sodium 134 L, Potassium 4.3, Chloride 104, Carbon Dioxide 18.0 L , Anion Gap 12, BUN 20 H, Creatinine 0.96, Estim Creat Clear Calc 57.57, Est GFR (MDRD) Af Amer 75, Est GFR (MDRD) Non-Af 62, BUN/Creatinine Ratio 20.7 H, Glucose 111 H, Calcium 9.6, Total Bilirubin 1.30 H, AST 132 H, ALT 130 H, Alkaline Phosphatase 81, Troponin I High Sens 16, Total Protein 9.9 H, Albumin TNP 04/05/21 14:40: Lactic Acid 2.2 H* Radiology Impression Chest CTA 04/05/21 14:06 IMPRESSION: 1. No pulmonary embolism. 2. Extensive ongoing Covid pneumonia. 3. Incompletely characterized probably benign hepatic lesion. Refer to outpatient follow-up hepatic imaging for more definitive characterization after complete resolution of acute illness. Electronically Signed: Marquise Rock MD at 16:06 EDT Tel , Service support , Assessment & Plan Assessment/Plan (1) Sjoegren syndrome: (2) Rheumatoid arthritis: (3) COVID-19: PLAN: Patient is a 65-year-old female who presents to the ED at [facility] on 04/05/2021 with a chief complaint of fatigue and weakness. Patient will be placed on MS 3 for management of symptomatic Covid infection. 1) symptomatic COVID-19 infection Patient has a 5-day history of progressively worsening fatigue, weakness and shortness of breath. Of note, patient was discharged on 31 March for COVID- 19 pneumonia. Patient was discharged on a 7-day course of dexamethasone, however it is unclear whether patient has been compliant as she was unaware that she was taking prescription. Patient also received remdesivir during last admission. Of note, patient's is also admitted to the ICU for symptomatic COVID-19 infection. While in the ED patient's respiratory's are elevated between 25 to 30 breaths/min and patient also displayed a tachycardia that is currently resolved. Patient is currently satting 98% on 2 L via nasal cannula. Patient is afebrile and CBC does not demonstrate a leukocytosis. Lactate is elevated at 2.2. Plan; placed on MS 3 for observation, initiate Decadron, UA/UC ordered, CBC and BMP in a.m., O2 per protocol, droplet precautions ordered, PT/OT eval ordered, case management consult ordered. 2) RA Continue hydroxychloroquine. DVT prophylaxis - Lovenox CODE STATUS: Full code Advance care planning: Patient does not have a living well. Patient's daughter, Nenita Argueta, is healthcare power of transactional attorney as patient's is currently admitted to the ICU. Vaccination status: Patient has not been vaccinated against COVID-19, although expresses desire to and has just not gotten around to it. Patient seen by Jeff Cordova PA-C, under the supervision of Dr. Nguyễn. Documented by User: Dr. Joselin Nguyễn MD 04/05/21 18:11 HPI - General General Date of Admission: 04/05/21 [facility] Medical History Asthma Fibromyalgia H/O Sjogren's disease Rheumatoid arthritis UTI (urinary tract infection) Home Medications cholecalciferol (vitamin D3) 50,000 unit PO TH 03/28/21 [History Last Taken Unknown] hydroxychloroquine 200 mg PO DAILY 03/28/21 [History Last Taken Unknown] albuterol sulfate [ProAir HFA] 2 puff INHALATION Q6H PRN #6.7 g 03/31/21 [Rx Last Taken Unknown] dexamethasone 6 mg PO DAILY #7 tab 03/31/21 [Rx Last Taken Unknown] Allergy/AdvReac Type Severity Reaction Status Date / Time levofloxacin [From Levaquin] Allergy PT UNSURE Verified 04/05/21 13:47 OF REACTION Family History (Updated 04/05/21 @ 17:49 by Jeff NEWTON) Father Diabetes Mother Cancer Breast cancer Surgical History History of hysterectomy Social History household members: spouse Smoking Status: Never smoker alcohol intake: current alcohol intake frequency: other substance use type: does not use Results Lab / Micro Data Result Diagrams: 04/05/21 14:05 04/05/21 14:05 Charges/Coding Addendum Addendum: This patient was seen in conjunction with AMAN Trinh. I have independently interviewed and examined the patient and reviewed pertinent historical, laboratory, and other data. Please refer to AMAN Trinh's note for his patient's presentation, findings, and recommendations. I have reviewed and his note and concur with his documentation 65-year-old female who was recently admitted on 03/06 and discharged on 03/06 with acute COVID-19 pneumonia/hypoxia and discharged on 2 L of oxygen. Patient comes in with progressive weakness, diarrhea which has since resolved today. Her has been admitted today. She is unable to care for self. She is saturating well on her 2 L of oxygen. She complains of aches everywhere. Denies any chest pain now dizziness or palpitation. Her vitals are stable. Admitting blood work is significant for hyponatremia, nongap metabolic acidosis likely from diarrhea and lactic acidosis. CT of the chest was negative for acute PE but showed extensive infiltrates. Physical Exam: Gen: Looks in some discomfort, not pale, not jaundiced, mildly dehydrated CVS:HS I +II, regular, no murmurs RESP: Diminished at lung bases GI: BS present and normal, soft, nontender, no palpable organs EXT:No edema ASSESSMENT: 1. Debility likely secondary to dehydration 2. Acute respiratory failure secondary to acute COVID-19 pneumonia 3. Hyponatremia 4. Nongap metabolic acidosis 5. Lactic acidosis from #1 Plan: Admit to [facility] Continue on Decadron Gentle IV fluid Check magnesium and phosphorus PT/OT to evaluate and treat Patient may need to be discharged to [facility] facility Visit Charges OBSV E&M: 56014 Initial observation care L3
[2021-04-05 18:09] LABS: Magnesium 2.5 mg/dL (1.6-2.6); Phosphorus 3.5 mg/dL (2.5-4.9)
[2021-04-05] MEDS: 0.9% Normal Saline 1,000 ML 75 ML IV (18:31)
[2021-04-05 18:50] LABS: Reflex Lactate? Y
[2021-04-05 20:59] LABS: Lactic Acid 2.2 mmol/L (0.4-1.9)
--- NOTE | 2021-04-05 21:02 | NURSING ---
Primary nurse Suellen MATA notified of the lactic acid result 2.2.
[2021-04-05] MEDS: Enoxaparin 40 MG/0.4 ML Syringe SC (22:22)
[2021-04-06] VITALS (7 sets, daily range): BP systolic 105–125; BP diastolic 50–76; PULSE 82–94; RESP 18–22; TEMP 35.9–36.7; O2SAT 90–97
[2021-04-06 01:57] LABS: Red Blood Cells-Urine 0 SEEN /hpf (0-5)
[2021-04-06 02:10] LABS: Color, Urine Yellow (Yellow); Glucose, Dipstick Normal (Normal); Ketone-Dipstick 5 mg/dl (Negative); Leukocyte Esterase-Dipstick 25 /ul (Negative); Nitrite-Dipstick Negative (Negative); Occult Blood-Urine Negative /ul (Negative); Protein-Dipstick 30 mg/dl (Negative); Urine Bilirubin Dipstick Negative (Negative); Urine Urobilinogen 1 mg/dl (Normal)
[2021-04-06 02:20] LABS: Bacteria 3+ /hpf (None Seen); Mucous, Urine RARE /hpf (<or=2+); Squamous Epithelial Cells - UA 0-5 SEEN /hpf (5-10); Urine Clarity Sl Cloudy (Clear); White Blood Cells 0-5 SEEN /hpf (0-5)
--- NOTE | 2021-04-06 02:27 | NURSING ---
Monitor alarms multiple times indicating poor perfusion. New sensor applied to left middle finger and reconnected to oximetry unit. Alarm is no longer sounding at this time. Will continue to monitor.
--- NOTE | 2021-04-06 03:40 | PCS.PANDOC ---
PANDEMIC DOCUMENTATION INITIATED: Date: 02/17/2021 Time: 1900 Emergency documentation initiated 04/05/21 @ [id number]
[2021-04-06] MEDS: 0.9% Normal Saline 1,000 ML 75 ML IV (05:40)
[2021-04-06 07:31] LABS: Absolute Lymphocyte Count 0.58 X10^3/uL (0.83-4.51); Absolute Neutrophil Count 5.3 X10^3/uL (2.0-7.7); Basophil# 0.01 X10^3/uL; Basophil% 0.2 % (0-1); Eosinophil# 0.06 X10^3/uL; Hematocrit 32.6 % (37-47); Hemoglobin 10.7 g/dL (12.0-15.0); Lymphocyte # 0.58 X10^3/ul (0.83-4.51); Lymphocyte % 9.2 % (19-41); Mean Corp Hgb Conc 32.8 g/dL (32-36); Mean Corpuscular Hgb 30.3 pg (27.0-32.0); Mean Corpuscular Volume 92.4 fL (81-99); Mean Platelet Vol. 10.5 fl (6.2-12.0); Monocyte# 0.29 X10^3/uL; Monocyte% 4.6 % (0-10); NRBC Flagged by Analyzer 0 % (0-5); Neutrophil % 84.4 % (47-70); POSITIVE DIFFERENTIAL YES; Platelet Count 252 K/mm3 (150-450); RBC Distribution Width CV 13.1 % (11.6-14.6); RBC Distribution Width SD 44.1 fl (35.1-43.9); Red Blood Count 3.53 M/mm3 (4.2-5.4); White Blood Count 6.3 K/mm3 (4.4-11.0)
[2021-04-06 07:43] LABS: Differential Indicated SCAN CRITERIA MET
[2021-04-06 08:10] LABS: ALB/GLOB Ratio 0.4 RATIO (0.9-2.4); AST(SGOT) 104 U/L (15-37); Alanine Aminotransfer ALT/SGPT 109 U/L (13-56); Albumin, Serum 1.9 g/dL (3.2-5.0); Alkaline Phosphatase 59 U/L (45-117); Anion Gap 8 (5-15); BUN 14 mg/dL (7-18); BUN/Creat Ratio 26.4 RATIO (10-20); Calcium,Total 8.3 mg/dL (8.5-10.1); Chloride 109 mmol/L (98-107); Creatinine, Serum 0.53 mg/dL (0.55-1.02); EST Glomerular Filtration Rate 123 mL/min (>60); Est Glom Filt Rate - Afr Amer 149 mL/min (>60); Estimated Creatinine Clearance 104.28 ml/min; Glucose 86 mg/dL (74-106); Potassium 3.9 mmol/L (3.5-5.1); Protein, Total 6.9 g/dL (6.4-8.2); Sodium Level 139 mmol/L (136-145)
[2021-04-06 08:51] LABS: Differential Comment SCANNED
[2021-04-06] MEDS: Furosemide 40 MG/4 ML Vial IV (09:01)
[2021-04-06] MEDS: dexAMETHasone 4 MG Tablet 6 MG PO (09:02)
[2021-04-06] MEDS: Enoxaparin 40 MG/0.4 ML Syringe SC ×2 (09:02→21:42)
--- NOTE | 2021-04-06 13:01 | PN.HOSP_ITS ---
Subjective Subjective Complains of diffuse arthralgias and dyspnea. Objective Data Objective Data Vital Signs: Vital Signs Temp Pulse Resp BP Pulse Ox 36.6 C 82 20 H 110/56 L 93 04/06/21 10:13 04/06/21 10:13 04/06/21 10:13 04/06/21 10:13 04/06/21 10:13 Oxygen Flow Rate (L/min) 3 Oxygen Delivery Method Nasal Cannula Weight: 113.4 kg Body Mass Index (BMI) 40.6 Intake & Output: Intake and Output for Last 24 Hours 04/04/21 04/05/21 04/06/21 23:59 23:59 23:59 Intake Total 1000 / 1200 1086.25 / 1086.25 Balance 1000 / 1200 1086.25 / 1086.25 Lab / Micro Data Result Diagrams: 04/06/21 06:28 04/06/21 06:28 Labs: Laboratory Results - last 24 hr 04/05/21 14:05: WBC 7.7, RBC 4.92, Hgb 14.8, Hct 44.8, MCV 91.1, MCH 30.1, MCHC 33.0, RDW Std Deviation 42.8, RDW Coeff of Megan 12.9, Plt Count 298, MPV 10.7, Immature Gran % (Auto) 0.900, Neut % (Auto) 88.3 H, Lymph % (Auto) 6.4 L, [place] % (Auto) 3.9, Eos % (Auto) 0.4, Baso % (Auto) 0.1, Absolute Neuts (auto) 6.8, Absolute Lymphs (auto) 0.49 L, Nucleated RBC % 0, Differential Comment SCANNED 04/05/21 14:05: Sodium 134 L, Potassium 4.3, Chloride 104, Carbon Dioxide 18.0 L , Anion Gap 12, BUN 20 H, Creatinine 0.96, Estim Creat Clear Calc 57.57, Est GFR (MDRD) Af Amer 75, Est GFR (MDRD) Non-Af 62, BUN/Creatinine Ratio 20.7 H, Glucose 111 H, Calcium 9.6, Total Bilirubin 1.30 H, AST 132 H, ALT 130 H, Alkaline Phosphatase 81, Troponin I High Sens 16, Total Protein 9.9 H, Albumin TNP 04/05/21 14:05: Phosphorus 3.5, Magnesium 2.5 04/05/21 14:40: Lactic Acid 2.2 H* 04/05/21 19:30: Lactic Acid 2.2 H* 04/06/21 01:50: Urine Color Yellow, Urine Clarity Sl Cloudy, Urine pH 5.0, Ur Specific [place] 1.020, Urine Protein 30 H, Urine Glucose (UA) Normal, Urine Ketones 5 H, Urine Occult Blood Negative, Urine Nitrite Negative, Urine Bilirubin Negative, Urine Urobilinogen 1 H, Ur Leukocyte Esterase 25 H, Urine RBC 0 SEEN, Urine WBC 0-5 SEEN, Ur Squamous Epith Cells 0-5 SEEN, Urine Bacteria 3+, Urine Mucus RARE 04/06/21 06:28: WBC 6.3, RBC 3.53 L, Hgb 10.7 L, Hct 32.6 L, MCV 92.4, MCH 30.3, MCHC 32.8, RDW Std Deviation 44.1 H, RDW Coeff of Megan 13.1, Plt Count 252, MPV 10.5, Immature Gran % (Auto) 0.600, Neut % (Auto) 84.4 H, Lymph % (Auto) 9.2 L, [place] % (Auto) 4.6, Eos % (Auto) 1.0, Baso % (Auto) 0.2, Absolute Neuts (auto) 5.3, Absolute Lymphs (auto) 0.58 L, Nucleated RBC % 0, Differential Comment SCANNED 04/06/21 06:28: Sodium 139, Potassium 3.9, Chloride 109 H, Carbon Dioxide 22.0, Anion Gap 8, BUN 14, Creatinine 0.53 L, Estim Creat Clear Calc 104.28, Est GFR (MDRD) Af Amer 149, Est GFR (MDRD) Non-Af 123, BUN/Creatinine Ratio 26.4 H, Glucose 86, Calcium 8.3 L, Total Bilirubin 0.70, AST 104 H, ALT 109 H, Alkaline Phosphatase 59, Total Protein 6.9, Albumin 1.9 L, Globulin 5.0 H, Albumin/Globulin Ratio 0.4 L Radiography Diagnostic Testing: Radiology Impression Chest CTA 04/05/21 14:06 IMPRESSION: 1. No pulmonary embolism. 2. Extensive ongoing Covid pneumonia. 3. Incompletely characterized probably benign hepatic lesion. Refer to outpatient follow-up hepatic imaging for more definitive characterization after complete resolution of acute illness. Electronically Signed: Marquise Rock MD at 16:06 EDT Tel , Service support , Physical Exam Const alert and no apparent distress HEENT Head and Scalp: normocephalic Resp normal respiratory effort, no retractions, no use of accessory muscles and clear to auscultation bilaterally Cardio regular rate, regular rhythm, S1 normal heart sound and S2 normal heart sound GI normal to inspection, nondistended, normoactive bowel sounds, soft to palpation, non-tender and non-distended Extremity normal to inspection Assessment & Plan Assessment/Plan (1) COVID-19: (2) Hypoxia: (3) Inability to ambulate due to multiple joints: PLAN: 1. COVID-19 * onset 03/27, quarantine through 04/16 * Patient was discharged on a 7-day course of dexamethasone the . Unclear patient was able to take that. We will continue with dexamethasone for now. * Not a candidate for remdesivir nor baricitinib * Patient did receive IV fluids. Patient's CAT scan looks slightly worse than it did previously but still diffuse infiltrates nonetheless. * Will give a dose of IV Lasix * Check ambulatory pulse ox prior to discharge * Patient is voluntary expressed interest in getting the COVID-19 vaccine. Advised patient to receive that after she has completed her isolation. 2. Debility * Due to COVID-19 but also patient's is currently in the hospital as well * PT OT evaluate and treat and determine if patient will require senior living facility. If patient requires senior living facility she probably would be able to leave this hospital until the 3. VTE prophylaxis with enoxaparin Patient permitted me to speak with her mother is currently hospitalized with Covid. Charges/Coding Visit Charges Inpatient E&M: 87670 Subs Hosp L2
[2021-04-06] MEDS: Acetaminophen 325 MG Tablet 650 MG PO (21:44)
[2021-04-07] VITALS (8 sets, daily range): BP systolic 102–145; BP diastolic 64–76; PULSE 48–96; RESP 18–20; TEMP 36.1–36.7; O2SAT 93–100
[2021-04-07] MEDS: Enoxaparin 40 MG/0.4 ML Syringe SC ×2 (09:27→20:22)
[2021-04-07] MEDS: dexAMETHasone 4 MG Tablet 6 MG PO (09:27)
--- NOTE | 2021-04-07 14:22 | PN.HOSP_ITS ---
Subjective Subjective Breathing better. Up and working with therapy and feeling better overall. Objective Data Objective Data Vital Signs: Vital Signs Temp Pulse Resp BP Pulse Ox 36.7 C 96 18 120/76 94 04/07/21 13:22 04/07/21 13:22 04/07/21 13:22 04/07/21 13:22 04/07/21 13:22 Oxygen Flow Rate (L/min) 3 Oxygen Delivery Method Nasal Cannula Weight: 113.489 kg Body Mass Index (BMI) 40.6 Intake & Output: Intake and Output for Last 24 Hours 04/05/21 04/06/21 04/07/21 23:59 23:59 23:59 Intake Total 1000 / 1200 2686.25 / 2686.25 1500 / 1500 Balance 1000 / 1200 2686.25 / 2686.25 1500 / 1500 Lab / Micro Data Result Diagrams: 04/06/21 06:28 04/06/21 06:28 Physical Exam Const alert Cardio regular rate, regular rhythm, S1 normal heart sound and S2 normal heart sound GI normal to inspection, nondistended, normoactive bowel sounds, soft to palpation, non-tender and non-distended Extremity normal to inspection Neuro Sensorium / Orientation: awake and alert Assessment & Plan Assessment/Plan (1) COVID-19: (2) Hypoxia: (3) Inability to ambulate due to multiple joints: PLAN: 1. COVID-19 * onset 03/27, quarantine through 04/16 * Patient was discharged on a 7-day course of dexamethasone the . Unclear patient was able to take that. We will continue with dexamethasone for now. * Not a candidate for remdesivir nor baricitinib * Patient did receive IV fluids. Patient's CAT scan looks slightly worse than it did previously but still diffuse infiltrates nonetheless. * Will give a dose of IV Lasix * Check ambulatory pulse ox prior to discharge * Patient is voluntary expressed interest in getting the COVID-19 vaccine. Ad vised patient to receive that after she has completed her isolation. 2. Debility * Due to COVID-19 but also patient's is currently in the hospital as well * Patient feeling better. Plan is for discharge home on the with home health care services. 3. VTE prophylaxis with enoxaparin Patient permitted me to speak with her mother is currently hospitalized with Covid. Charges/Coding Visit Charges Inpatient E&M: 03167 Subs Hosp L2
--- NOTE | 2021-04-07 16:42 | CASEMGMT ---
Social Work Note SW updated that pt's and mother is currently on PCU. SW in to speak with pt to provide support to pt. SW introduced self and role at [facility]. Pt is alert and orientated, engages appropriately in conversation. Pt states that she is doing well, confirms that her and mother are on PCU. Pt states she was able to speak with her today and her sister is getting the updates on their mother who then updates pt. Pt states that she is focusing on making herself better and focusing on her own health. Pt states that the physician told her that she could go down to see her mother but pt states at this time, she doesn't want to do that as her mom will then focus on pt's health and not her own health. Pt states her mother doesn't know pt is currently at [facility]. SW offered support to pt through conversation. Pt states that she is doing much better now, better than she was, states she was crying this morning. Pt states that her taoist is really good support for her and knows that they are praying for her at this time. Pt states that she and her have custody of a 7 year old son. Pt states that the 7 year old is currently staying at pt's daughter home while pt and her is at [facility]. Pt states that her 7 year old was supposed to have a birthday constitution party yesterday but was not able to have once since pt and her are at [facility]. Pt states that their taoist arranged a birthday constitution party for the 7 year old. Pt states that she prefers to discharge home, denied the need for HHC or outpatient therapy. Pt states that her daughter, who had COVID already, will be staying with pt when pt discharges from the hospital and is able to assist if needed. Pt denied additional needs or concerns at this time. Pt thanked this worker for stopping in to see pt. Jailene Pan ACADEMIC SUPPORT DIRECTOR, PROJECT MANAGEMENT ENGINEER
[2021-04-08 03:00] VITALS: BP 122/57; PULSE 61; RESP 18; TEMP 35.9; O2SAT 99
[2021-04-08 03:04] VITALS: O2SAT 99
[2021-04-08] MEDS: 0.9% Saline Lock 10 ML Syringe IV (08:41)
[2021-04-08] MEDS: Furosemide 40 MG/4 ML Vial IV (08:41)
[2021-04-08 09:19] VITALS: O2SAT 99
--- NOTE | 2021-04-08 09:59 | CASEMGMT ---
RN SELENE Readmission Note Previous Admission: 03/28/21-03/31/21 Diagnosis: acute hypoxia, bilat pna, suspected covid, encephalopathy DC Disposition: Pt dc'd home with no recommendation for therapy, but did qualify for home O2. Current Admission Current Diagnosis: Debility, COVID 19 PNA Pt presented to ER from home with complaints of weakness. Therapy is seeing pt, but she denies the need for therapy upon dc. ADOLFO MORTON to follow pt for increased O2 needs from prior script. ADOLFO MORTON in pt room and patient was tearful while on the phone. Pt's and mother are hospitalized as well. Pt denies any further needs at home. DC PLAN: Home
[2021-04-08 10:06] VITALS: O2SAT 97
--- NOTE | 2021-04-08 10:43 | PCM.DC ---
Discharge Instructions Diet Discharge Diet: No restrictions Activity Discharge Activity: Return to Normal Activity (ease back into normal routine. ) Additional Activity Instructions:: Self isolate for at least 20 days since symptoms began (03/27-04/16/2021) AND at least one day (24 hours) have passed since resolution of fever without the use of fever-reducing agents AND improvement of symptoms (e.g., cough, shortness of breath) When around people in the same room, wear a face mask. Individuals also in the room should wear a mask. If possible, use a different bathroom and bedroom. Perform adequate hand hygiene. Avoid sharing dishes, glasses, etc. Dressing / Incision Call your doctor if you observe: Fever of 101 or Higher and Shortness of breath Follow Up Care Test Results: Test results from this visit will be discussed in further detail at your follow-up appointment, if applicable. Discharge Plan Admission Admit Date/Time: 04/06/21 17:52 Primary Reason for Your Visit: COVID 19 Attending Provider: Fredo Palumbo Primary Care Provider: Jacqueline Layne Discharge Orders/Prescriptions Prescriptions: Continued cholecalciferol (vitamin D3) 1,250 mcg (50,000 unit) capsule 50,000 unit PO TH RF: 0 hydroxychloroquine 200 mg tablet 200 mg PO DAILY RF: 0 albuterol sulfate [ProAir HFA] 90 mcg/actuation HFA aerosol inhaler 2 puff inhalation Q6H PRN (Reason: shortness of breath or wheezing) Qty: 6.7 RF: 0 Discontinued dexamethasone 6 mg tablet 6 mg PO DAILY Qty: 7 RF: 0 Referrals / Follow Up: Jacqueline Layne DO [Primary Care Provider] - Within 2 Weeks Disposition Disposition (needs filled in before D/C Order can be placed): Home, Self Care
--- NOTE | 2021-04-08 10:47 | PCM.DC.SUM ---
Providers Date of Admission: 04/06/21 Primary Care Physician: Dr. Jacqueline Layne, DO Reason For Visit: DEBILITY/COVID-19 PNEUMONIA Diagnosis Discharge Diagnosis (1) COVID-19: Status: Acute Code(s): U07.1 - COVID-19 (2) Hypoxia: Status: Acute Code(s): R09.02 - Hypoxemia (3) Inability to ambulate due to multiple joints: Status: Acute Code(s): R26.2 - Difficulty in walking, not elsewhere classified Medications at Discharge Home Medications cholecalciferol (vitamin D3) 50,000 unit PO TH 03/28/21 hydroxychloroquine 200 mg PO DAILY 03/28/21 albuterol sulfate [ProAir HFA] 2 puff INHALATION Q6H PRN #6.7 g 03/31/21 Hospital Course Operations None Procedures None Summary of Care Provided Minutes Spent on Discharge: 32 Hospital Course: 65-year-old female presents with shortness of breath. Recently discharged with COVID-19 but came back just feeling worse. Patient was continued on dexamethasone and she overall continue to improve. Patient had an ear probe for her pulse ox which did not adequately slate picker her oxygenation. When compared to the pulse oximeter on her finger number was much higher. Patient has completed her dexamethasone here. Patient will be discharged home in stable condition. Patient was also very weak and concern was that she would require home health for half-way facility patient has done better so she is feeling better. 1. COVID-19 onset 03/27, quarantine through 04/16 improving Patient did receive IV fluids. Patient's CAT scan looks slightly worse than it did previously but still diffuse infiltrates nonetheless. Will give a dose of IV Lasix Check ambulatory pulse ox prior to discharge Patient is voluntary expressed interest in getting the COVID-19 vaccine. Advised patient to receive that after she has completed her isolation. 2. Debility Improved. Physical Exam Const alert Constitutional Narrative: up in chair. No respiratory distress. No conversational dyspnea. 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 04/05/21 14:05 Blood Culture (Wb) - Left Hand Blood Culture - Preliminary No growth in 48 hours. D/C Instructions Discharge Diet: No restrictions Additional Activity Instructions: Self isolate for at least 20 days since symptoms began (03/27-04/16/2021) AND at least one day (24 hours) have passed since resolution of fever without the use of fever-reducing agents AND improvement of symptoms (e.g., cough, shortness of breath) When around people in the same room, wear a face mask. Individuals also in the room should wear a mask. If possible, use a different bathroom and bedroom. Perform adequate hand hygiene. Avoid sharing dishes, glasses, etc. Call your doctor if you observe: Fever of 101 or Higher and Shortness of breath Meaningful Use Info Meaningful Use Diagnoses (Choose all that apply): None applicable Discharge Plan Admission Admit Date/Time: 04/06/21 17:52 Primary Reason for Your Visit: COVID 19 Attending Provider: Fredo Palumbo Primary Care Provider: Jacqueline Layne Discharge Orders/Prescriptions Prescriptions: Continued cholecalciferol (vitamin D3) 1,250 mcg (50,000 unit) capsule 50,000 unit PO TH RF: 0 hydroxychloroquine 200 mg tablet 200 mg PO DAILY RF: 0 albuterol sulfate [ProAir HFA] 90 mcg/actuation HFA aerosol inhaler 2 puff inhalation Q6H PRN (Reason: shortness of breath or wheezing) Qty: 6.7 RF: 0 Discontinued dexamethasone 6 mg tablet 6 mg PO DAILY Qty: 7 RF: 0 Referrals / Follow Up: Jacqueline Layne DO [Primary Care Provider] - Within 2 Weeks Disposition Disposition (needs filled in before D/C Order can be placed): Home, Self Care Charges/Coding Visit Charges Inpatient E&M: 83001 Disch Hosp
[2021-04-08] MEDS: Enoxaparin 40 MG/0.4 ML Syringe SC (11:04)
[2021-04-08] MEDS: dexAMETHasone 2 MG TABLET 6 MG PO (11:04)
[2021-04-08 11:05] VITALS: BP 108/52; PULSE 99; RESP 18; TEMP 36.6; O2SAT 97
[2021-04-08 11:38] VITALS: O2SAT 84; O2SAT 91; O2SAT 95
--- NOTE | 2021-04-08 11:51 | CASEMGMT ---
Pt O2 needs remain the same.
--- NOTE | 2021-04-10 11:58 | CASEMGMT ---
ADOLFO MORTON Discharge Follow Up Phone Call: MANOLO: 11 Strata:3 Call Date: 04/10/21 Discharge Date: 04/08/21 Time of Call: 1156 Duration:3 min Admitting Dx: COVID 19 ADOLFO MORTON completed follow up phone call after recent hospitalization. Pt states she is doing ok, feeling weak. She states her O2 has been at 2L and she is running 98% per her pulse ox. She states she is quarantining and denies any concerns with this. She has a follow up appt scheduled for Apr 18. She denies any questions with her medications or dc instructions.
== END 2021-04-08 13:18 | disposition home or self-care (01) | DRG 177 ==
LOC: ED 17:25 → MS3 17:36
PROVIDERS: Admitting Provider Internal Medicine; Emergency Provider Emergency Medicine; PCP Family Medicine
DX: U07.1 COVID-19 (principal); J12.82 Pneumonia due to coronavirus disease 2019; E87.1 Hypo-osmolality and hyponatremia; E87.2 Acidosis; M79.7 Fibromyalgia; M35.00 Sjogren syndrome, unspecified; M06.9 Rheumatoid arthritis, unspecified; J45.909 Unspecified asthma, uncomplicated; E86.0 Dehydration; Z83.3 Family history of diabetes mellitus; Z85.3 Personal history of malignant neoplasm of breast; Z88.1 Allergy status to other antibiotic agents; Z90.710 Acquired absence of both cervix and uterus
CPT/HCPCS: 36415; 71275; 80053; 81001; 83605; 83735; 84100; 84484; 85025; 87040; 87077; 87086; 87088; 87186; 93005; 94762; 97161; 97166; 97530; 97535; 97802; 99251; 99285; J7030; Q9967; A4216; G0463; J1940

== ENCOUNTER → 2021-04-24 08:26 | Outpatient (CLI) | payer OTHER, SELFPAY ==
--- NOTE | 2021-04-24 08:29 | RAD_ITS ---
STUDY: X-RAY CHEST REASON FOR EXAM: Female, 65 years old. SOB TECHNIQUE: PA and lateral views of the chest. COMPARISON: 03/28/2021 FINDINGS: There are interstitial fibrotic changes of the lungs. Superimposed interstitial and airspace opacifications in both lung hart have worsened since the previous study. Normal size heart. Normal mediastinum and ry. Normal visualized pulmonary arteries. Normal visualized aortic arch and descending thoracic aorta. There are diffuse degenerative changes of the visualized thoracic spine. Normal visualized ribs, clavicles, and shoulders. There is no demonstrated abnormality of the visualized soft tissue structures of the upper abdomen. RAD/Chest PA and Lateral IMPRESSION: Worsening interstitial and airspace opacifications in both lung hart since the previous study. Findings suggestive of Covid pneumonia. Electronically Signed: Ho Osei MD at 17:17 EDT , Service support ,
[2021-04-24 10:24] LABS: Hematocrit 32.2 % (37-47); Hemoglobin 10.2 g/dL (12.0-15.0); Mean Corp Hgb Conc 31.7 g/dL (32-36); Mean Corpuscular Hgb 29.6 pg (27.0-32.0); Mean Corpuscular Volume 93.3 fL (81-99); Platelet Count 508 K/mm3 (150-450); RBC Distribution Width CV 14.1 % (11.6-14.6); RBC Distribution Width SD 47.9 fl (35.1-43.9); Red Blood Count 3.45 M/mm3 (4.2-5.4); White Blood Count 4.6 K/mm3 (4.4-11.0)
[2021-04-24 10:33] LABS: ALB/GLOB Ratio 0.4 RATIO (0.9-2.4); AST(SGOT) 17 U/L (15-37); Alanine Aminotransfer ALT/SGPT 15 U/L (13-56); Alkaline Phosphatase 90 U/L (45-117); Anion Gap 4 (5-15); BUN 8 mg/dL (7-18); BUN/Creat Ratio 14.2 RATIO (10-20); Calcium,Total 8.8 mg/dL (8.5-10.1); Chloride 107 mmol/L (98-107); Creatinine, Serum 0.56 mg/dL (0.55-1.02); EST Glomerular Filtration Rate 115 mL/min (>60); Est Glom Filt Rate - Afr Amer 139 mL/min (>60); Globulin 5.6 g/dL (2.2-4.2); Glucose 88 mg/dL (74-106); Protein, Total 7.6 g/dL (6.4-8.2); Sodium Level 138 mmol/L (136-145)
[2021-04-24 20:02] LABS: BNP,B-Type NATRIURETIC PEPTIDE 49.8 pg/mL (0-100)
== END ==
PROVIDERS: PCP Family Medicine; Referring Provider Nurse Practitioner Primary Care; Visit Provider Nurse Practitioner Primary Care
DX: R60.0 Localized edema (principal); R06.02 Shortness of breath
CPT/HCPCS: 36415; 71046; 80053; 83880; 85027

== ENCOUNTER → 2021-05-08 10:22 | Outpatient (CLI) | payer OTHER, SELFPAY ==
--- NOTE | 2021-05-08 10:24 | RAD_ITS ---
STUDY: X-RAY CHEST REASON FOR EXAM: Female, 65 years old. COVID pneumonia. TECHNIQUE: PA and lateral views of the chest. COMPARISON: 04/24/2021 and 03/28/2021. FINDINGS: The lungs are hypoexpanded. There is diffuse interstitial changes throughout both lungs most marked at the left lung base and peripherally within the right lung. These are unchanged from the prior exam. There is no demonstrated pleural abnormality. Normal size heart. Normal mediastinum and ry. Normal visualized pulmonary arteries. Normal visualized aortic arch and descending thoracic aorta. The thoracic spine is obscured by the mediastinum. There is degenerative osteoarthritis of the bilateral shoulders. There is no demonstrated abnormality of the visualized soft tissue structures of the upper abdomen. RAD/Chest PA and Lateral IMPRESSION: No major interval change when compared to prior study. Question persistent cold with pneumonia. Electronically Signed: Jamey Benites DO at 18:27 EDT Tel [phone], Service support ,
== END ==
LOC: MTRAD 10:23
PROVIDERS: PCP Family Medicine; Referring Provider Nurse Practitioner Family; Visit Provider Nurse Practitioner Family
DX: U07.1 COVID-19 (principal); R06.02 Shortness of breath
CPT/HCPCS: 71046

== ENCOUNTER → 2021-06-06 09:30 | Outpatient (CLI) | payer OTHER, SELFPAY ==
--- NOTE | 2021-06-06 09:31 | RAD_ITS ---
HISTORY: COVID19 with persistent cough EXAMINATION/TECHNIQUE: XR Chest 2 Views: 2 views COMPARISON: 05/08/21 FINDINGS: LINES/DEVICES: None. LUNGS: Persistent bilateral airspace opacities with minimal improvement in the left lower lung field. No consolidations or pleural effusions. MEDIASTINUM AND CARDIOVASCULAR STRUCTURES: Cardiac silhouette not enlarged. Central airways and mediastinal contour are unremarkable. BONES AND SOFT TISSUES: No acute bony abnormalities. RAD/Chest PA and Lateral IMPRESSION: Stable abnormal appearance of the chest with persistent bilateral airspace disease, minimally improved from prior study. at 0040 Reported and signed by: Slava Montero MD Electronically Signed: Slava Montero MD at 0:39 EST Tel , Service support ,
== END ==
LOC: MTRAD 09:30
PROVIDERS: PCP Family Medicine; Referring Provider Family Medicine; Visit Provider Family Medicine
DX: U07.1 COVID-19 (principal); J12.82 Pneumonia due to coronavirus disease 2019
CPT/HCPCS: 71046

== ENCOUNTER 2021-07-15 10:27 | Outpatient (CLI) | payer OTHER, SELFPAY ==
--- NOTE | 2021-07-15 10:30 | RAD_ITS ---
EXAM: XR CHEST, 2 VIEWS : 1955 CLINICAL INDICATION: PNEUMONIA DUE TO COVID TECHNIQUE: Frontal and lateral views of the chest. This report was created using [employer] report generation technology. COMPARISON: 06/06/2021 FINDINGS: LUNGS AND PLEURAL SPACES: There is bilateral airspace disease which are unchanged from the reference exam. There is no effusion or pneumothorax. HEART: Unremarkable. Cardiac silhouette not enlarged. MEDIASTINUM: Central airways and mediastinal contour are unremarkable. BONES/JOINTS: Unremarkable. SOFT TISSUES: Unremarkable. RAD/Chest PA and Lateral IMPRESSION: No change in the appearance of the chest from the reference exam. There is bilateral airspace disease which may represent pneumonia. at 0018 Reported and signed by: Julian Duran MD Electronically Signed: Julian Duran MD at 0:17 EST Tel , Service support ,
== END 2021-07-15 23:59 | disposition short-term general hospital (02) ==
LOC: MTRAD 10:28
PROVIDERS: PCP Family Medicine; Referring Provider Family Medicine; Visit Provider Family Medicine
DX: U07.1 COVID-19 (principal); R06.2 Wheezing
CPT/HCPCS: 71046

== ENCOUNTER 2021-10-13 15:04 | Outpatient (CLI) | payer MEDICARE, SELFPAY ==
--- NOTE | 2021-10-13 15:10 | RAD_ITS ---
STUDY: X-RAY CHEST REASON FOR EXAM: Female, 65 years old. COVID PNEUMONIA TECHNIQUE: PA and lateral views of the chest. COMPARISON: Comparison is made with prior study of 07/15/2021. FINDINGS: Mild degree of residual infiltrate in the left lower lobe and the lateral aspect of the right upper lobe although there has been improvement. Stable elevation of the right hemidiaphragm. Calcified granulomas in the right lung base. Normal size heart. Normal mediastinum and ry. Normal visualized pulmonary arteries. There is atherosclerotic calcification of the aortic arch with tortuosity. There are diffuse degenerative changes of the visualized thoracic spine. Normal visualized ribs, clavicles, and shoulders. There is no demonstrated abnormality of the visualized soft tissue structures of the upper abdomen. RAD/Chest PA and Lateral IMPRESSION: Mild residual changes in both lungs although there has been improvement as compared to prior study. Electronically Signed: Kendrick Salguero MD at 14:59 EDT ,
== END 2021-10-13 23:59 | disposition home or self-care (01) ==
LOC: MTRAD 15:06
PROVIDERS: PCP Family Medicine; Referring Provider Family Medicine; Visit Provider Family Medicine
DX: U07.1 COVID-19 (principal); J12.82 Pneumonia due to coronavirus disease 2019; J45.909 Unspecified asthma, uncomplicated
CPT/HCPCS: 71046

== ENCOUNTER → 2021-11-13 | Outpatient (CLI) | payer MEDICARE, SELFPAY ==
[2021-11-13 12:19] LABS: Hematocrit 38.1 % (37-47); Hemoglobin 12.3 g/dL (12.0-15.0); Mean Corp Hgb Conc 32.3 g/dL (32-36); Mean Corpuscular Hgb 31.7 pg (27.0-32.0); Mean Corpuscular Volume 98.2 fL (81-99); Mean Platelet Vol. 10.5 fl (6.2-12.0); Platelet Count 262 K/mm3 (150-450); RBC Distribution Width CV 13.2 % (11.6-14.6); Red Blood Count 3.88 M/mm3 (4.2-5.4); White Blood Count 3.9 K/mm3 (4.4-11.0)
[2021-11-13 12:44] LABS: ALB/GLOB Ratio 0.8 RATIO (0.9-2.4); AST(SGOT) 19 U/L (15-37); Alanine Aminotransfer ALT/SGPT 20 U/L (13-56); Albumin, Serum 3.6 g/dL (3.2-5.0); Alkaline Phosphatase 76 U/L (45-117); Anion Gap 4 (5-15); BUN 12 mg/dL (7-18); BUN/Creat Ratio 18.5 RATIO (10-20); Calcium,Total 9.2 mg/dL (8.5-10.1); Chloride 105 mmol/L (98-107); Cholesterol 205 mg/dL (200); Creatinine, Serum 0.65 mg/dL (0.55-1.02); EST Glomerular Filtration Rate 98 mL/min (>60); Est Glom Filt Rate - Afr Amer 118 mL/min (>60); Globulin 4.6 g/dL (2.2-4.2); Glucose 74 mg/dL (74-106); High Density Lipoprotein 58 mg/dL; Potassium 3.9 mmol/L (3.5-5.1); Protein, Total 8.2 g/dL (6.4-8.2); Sodium Level 138 mmol/L (136-145); Triglycerides 144 mg/dL; Very Low Density Lipoprotein 29 mg/dL (5-40)
[2021-11-13 13:30] LABS: Hepatitis C Antibody Non-Reactive (Nonreactive); Vitamin D,25 Hydroxy 65.9 ng/mL
== END | disposition home or self-care (01) ==
LOC: BIMLAB 08:57
PROVIDERS: PCP Family Medicine; Referring Provider Family Medicine; Visit Provider Family Medicine
DX: R03.0 Elevated blood-pressure reading, without diagnosis of hypertension (principal); E55.9 Vitamin D deficiency, unspecified; D64.9 Anemia, unspecified; Z13.6 Encounter for screening for cardiovascular disorders; Z11.59 Encounter for screening for other viral diseases
CPT/HCPCS: 36415; 80053; 80061; 82306; 85027; 86803

== ENCOUNTER → 2022-03-11 | Outpatient (CLI) | payer MEDICARE, SELFPAY ==
[2022-03-11 12:16] LABS: ALB/GLOB Ratio 0.8 RATIO (0.9-2.4); AST(SGOT) 20 U/L (15-37); Alanine Aminotransfer ALT/SGPT 27 U/L (13-56); Albumin, Serum 3.6 g/dL (3.2-5.0); Alkaline Phosphatase 81 U/L (45-117); Anion Gap 5 (5-15); BUN 17 mg/dL (7-18); BUN/Creat Ratio 22.6 RATIO (10-20); Calcium,Total 8.9 mg/dL (8.5-10.1); Chloride 103 mmol/L (98-107); Creatinine, Serum 0.75 mg/dL (0.55-1.02); EST Glomerular Filtration Rate 82 mL/min (>60); Est Glom Filt Rate - Afr Amer 100 mL/min (>60); Globulin 4.7 g/dL (2.2-4.2); Glucose 79 mg/dL (74-106); Potassium 3.9 mmol/L (3.5-5.1); Protein, Total 8.3 g/dL (6.4-8.2); Sodium Level 139 mmol/L (136-145)
== END | disposition home or self-care (01) ==
LOC: BIMLAB 08:34
PROVIDERS: PCP Family Medicine; Referring Provider Family Medicine; Visit Provider Family Medicine
DX: I10 Essential (primary) hypertension (principal)
CPT/HCPCS: 36415; 80053

== ENCOUNTER → 2022-07-17 | Outpatient (CLI) | payer MEDICARE, SELFPAY ==
[2022-07-17 12:30] LABS: Absolute Lymphocyte Count 1.26 X10^3/uL (0.83-4.51); Absolute Neutrophil Count 2.2 X10^3/uL (2.0-7.7); Basophil# 0.04 X10^3/uL; Eosinophil# 0.15 X10^3/uL; Eosinophils% 3.8 % (0-5); Hematocrit 38.3 % (37-47); Hemoglobin 12.5 g/dL (12.0-15.0); Lymphocyte # 1.26 X10^3/ul (0.83-4.51); Mean Corp Hgb Conc 32.6 g/dL (32-36); Mean Corpuscular Hgb 32.8 pg (27.0-32.0); Mean Corpuscular Volume 100.5 fL (81-99); Mean Platelet Vol. 10.7 fl (6.2-12.0); Monocyte# 0.27 X10^3/uL; Monocyte% 6.9 % (0-10); Neutrophil # 2.21 X10^3/uL (2.7-7.7); Platelet Count 282 K/mm3 (150-450); RBC Distribution Width SD 47.5 fl (35.1-43.9); Red Blood Count 3.81 M/mm3 (4.2-5.4); White Blood Count 3.9 K/mm3 (4.4-11.0)
== END | disposition home or self-care (01) ==
LOC: BIMLAB 11:13
PROVIDERS: PCP Family Medicine; Referring Provider Internal Medicine Rheumatology; Visit Provider Internal Medicine Rheumatology
DX: D64.9 Anemia, unspecified (principal)
CPT/HCPCS: 36415; 85025

== ENCOUNTER → 2022-08-07 | Outpatient (CLI) | payer MEDICARE, SELFPAY ==
[2022-08-10 16:09] LABS: Free Kappa Light Chains 44.9 mg/L (3.3-19.4); Free Lambda Light Chains 24.9 mg/L (5.7-26.3)
== END | disposition home or self-care (01) ==
PROVIDERS: PCP Family Medicine
DX: E85.81 Light chain (AL) amyloidosis (principal)
CPT/HCPCS: 36415; 83883

== ENCOUNTER → 2022-08-11 | Outpatient (CLI) | payer MEDICARE, SELFPAY ==
[2022-08-11 12:29] LABS: Absolute Lymphocyte Count 0.98 X10^3/uL (0.83-4.51); Absolute Neutrophil Count 1.7 X10^3/uL (2.0-7.7); Basophil# 0.03 X10^3/uL; Eosinophils% 3.3 % (0-5); Hematocrit 36.2 % (37-47); Hemoglobin 11.9 g/dL (12.0-15.0); Lymphocyte # 0.98 X10^3/ul (0.83-4.51); Lymphocyte % 31.9 % (19-41); Mean Corp Hgb Conc 32.9 g/dL (32-36); Mean Corpuscular Hgb 32.7 pg (27.0-32.0); Mean Corpuscular Volume 99.5 fL (81-99); Mean Platelet Vol. 10.4 fl (6.2-12.0); Monocyte# 0.26 X10^3/uL; Monocyte% 8.5 % (0-10); NRBC Flagged by Analyzer 0 % (0-5); Neutrophil # 1.69 X10^3/uL (2.7-7.7); Platelet Count 270 K/mm3 (150-450); RBC Distribution Width CV 12.3 % (11.6-14.6); RBC Distribution Width SD 44.8 fl (35.1-43.9); Red Blood Count 3.64 M/mm3 (4.2-5.4); White Blood Count 3.1 K/mm3 (4.4-11.0)
[2022-08-11 13:00] LABS: BNP,B-Type NATRIURETIC PEPTIDE 29.2 pg/mL (0-100)
[2022-08-11 13:55] LABS: ALB/GLOB Ratio 0.9 RATIO (0.9-2.4); AST(SGOT) 19 U/L (15-37); Alanine Aminotransfer ALT/SGPT 20 U/L (13-56); Albumin, Serum 3.8 g/dL (3.2-5.0); Alkaline Phosphatase 82 U/L (45-117); Anion Gap 9 (5-15); BUN 19 mg/dL (7-18); Calcium,Total 9.1 mg/dL (8.5-10.1); Chloride 106 mmol/L (98-107); Creatinine, Serum 0.73 mg/dL (0.55-1.02); EST Glomerular Filtration Rate 85 mL/min (>60); Est Glom Filt Rate - Afr Amer 103 mL/min (>60); Globulin 4.3 g/dL (2.2-4.2); Glucose 97 mg/dL (74-106); LDH 208 U/L (84-246); Phosphorus 3.2 mg/dL (2.5-4.9); Protein, Total 8.1 g/dL (6.4-8.2); Sodium Level 139 mmol/L (136-145); Troponin-I HS 6 pg/mL (3.0-54.0); Uric Acid 6.9 mg/dL (2.6-6.0)
[2022-08-12 16:09] LABS: Albumin 3.9 g/dL (2.9-4.4); Alpha-1-Globulins 0.2 g/dL (0.0-0.4); Alpha-2-Globulins 0.7 g/dL (0.4-1.0); Gamma Globulin 1.5 g/dL (0.4-1.8); Immunoglobulin A 341 mg/dL (87-352); Immunoglobulin G 1727 mg/dL (586-1602); Immunoglobulin M 38 mg/dL (26-217); PROEL- TOTAL PROTEIN 7.5 g/dL (6.0-8.5)
[2022-08-13 17:50] LABS: Beta-2-Microglobulin, S 2.3 mg/L (0.6-2.4)
== END | disposition home or self-care (01) ==
LOC: BIMLAB 11:15
PROVIDERS: PCP Family Medicine
DX: E85.81 Light chain (AL) amyloidosis (principal)
CPT/HCPCS: 36415; 80053; 82232; 82330; 82784; 83615; 83880; 84100; 84165; 84484; 84550; 85025; 86334

== ENCOUNTER → 2022-08-27 | Outpatient (CLI) | payer MEDICARE, SELFPAY ==
[2022-08-31 16:08] LABS: Albumin, Ur 27.4 % (.); Alpha-1-Globulin, Ur 4.1 % (.); Beta Globulin, Ur 29.3 % (.); Gamma Globulin, Ur 27.1 % (.); M-Spike, Ur % Not Observed % (Not Observed); Protein, 24Ur 389 mg/24 hr (30-150); Total Protein, Ur 26.8 mg/dL (Not Estab.)
== END | disposition home or self-care (01) ==
LOC: BIMLAB 11:36 → LABSPEC 11:36
PROVIDERS: PCP Family Medicine
DX: E85.81 Light chain (AL) amyloidosis (principal)
CPT/HCPCS: 81050; 84166

== ENCOUNTER → 2023-02-10 | Outpatient (CLI) | payer MEDICARE, SELFPAY ==
[2023-02-10 12:49] LABS: Vitamin D,25 Hydroxy 76.7 ng/mL
[2023-02-10 12:53] LABS: ALB/GLOB Ratio 0.7 RATIO (0.9-2.4); AST(SGOT) 16 U/L (15-37); Alanine Aminotransfer ALT/SGPT 20 U/L (13-56); Albumin, Serum 3.5 g/dL (3.2-5.0); Alkaline Phosphatase 94 U/L (45-117); Anion Gap 5 (5-15); BUN 15 mg/dL (7-18); Calcium,Total 9.4 mg/dL (8.5-10.1); Chloride 102 mmol/L (98-107); Cholesterol 218 mg/dL (200); Creatinine, Serum 0.75 mg/dL (0.55-1.02); EST Glomerular Filtration Rate 82 mL/min (>60); Est Glom Filt Rate - Afr Amer 99 mL/min (>60); Globulin 4.9 g/dL (2.2-4.2); Glucose 86 mg/dL (74-106); High Density Lipoprotein 66 mg/dL; Potassium 4.4 mmol/L (3.5-5.1); Protein, Total 8.4 g/dL (6.4-8.2); Sodium Level 138 mmol/L (136-145); Thyroid Stim Hormone (TSH) 2.49 uIU/mL (0.358-3.74); Triglycerides 149 mg/dL; Very Low Density Lipoprotein 30 mg/dL (5-40)
== END | disposition home or self-care (01) ==
PROVIDERS: PCP Family Medicine; Referring Provider Family Medicine; Visit Provider Family Medicine
DX: Z00.00 Encounter for general adult medical examination without abnormal findings (principal); Z13.6 Encounter for screening for cardiovascular disorders; Z13.1 Encounter for screening for diabetes mellitus; I10 Essential (primary) hypertension; E55.9 Vitamin D deficiency, unspecified
CPT/HCPCS: 36415; 80053; 80061; 82306; 84443

== ENCOUNTER → 2023-03-16 | Outpatient (CLI) | payer MEDICARE, SELFPAY ==
[2023-03-16 12:52] LABS: ALB/GLOB Ratio 0.8 RATIO (0.9-2.4); AST(SGOT) 16 U/L (15-37); Alanine Aminotransfer ALT/SGPT 21 U/L (13-56); Albumin, Serum 3.6 g/dL (3.2-5.0); Alkaline Phosphatase 78 U/L (45-117); Anion Gap 4 (5-15); BUN 14 mg/dL (7-18); BUN/Creat Ratio 19.5 RATIO (10-20); Calcium,Total 9.1 mg/dL (8.5-10.1); Chloride 107 mmol/L (98-107); Creatinine, Serum 0.72 mg/dL (0.55-1.02); EST Glomerular Filtration Rate 86 mL/min (>60); Est Glom Filt Rate - Afr Amer 104 mL/min (>60); Globulin 4.3 g/dL (2.2-4.2); Glucose 77 mg/dL (74-106); Protein, Total 7.9 g/dL (6.4-8.2); Sodium Level 139 mmol/L (136-145)
== END | disposition home or self-care (01) ==
LOC: BIMLAB 09:09
PROVIDERS: PCP Family Medicine; Referring Provider Family Medicine; Visit Provider Family Medicine
DX: I10 Essential (primary) hypertension (principal)
CPT/HCPCS: 36415; 80053

== ENCOUNTER → 2023-09-15 | Outpatient (CLI) | payer MEDICARE, SELFPAY ==
[2023-09-15 12:23] LABS: Hematocrit 32.4 % (37-47); Mean Corpuscular Volume 102.5 fL (81-99); Mean Platelet Vol. 10.3 fl (6.2-12.0); POSITIVE COUNT YES; Platelet Count 265 K/mm3 (150-450); RBC Distribution Width CV 12.6 % (11.6-14.6); RBC Distribution Width SD 45.2 fl (35.1-43.9); Red Blood Count 3.16 M/mm3 (4.2-5.4); White Blood Count 3.4 K/mm3 (4.4-11.0)
[2023-09-15 12:48] LABS: Vitamin B12 434 pg/mL (211-911); Vitamin D,25 Hydroxy 80.5 ng/mL
[2023-09-15 13:05] LABS: ALB/GLOB Ratio 0.8 RATIO (0.9-2.4); AST(SGOT) 20 U/L (15-37); Alanine Aminotransfer ALT/SGPT 23 U/L (13-56); Albumin, Serum 3.7 g/dL (3.2-5.0); Alkaline Phosphatase 90 U/L (45-117); Anion Gap 8 (5-15); BUN 13 mg/dL (7-18); BUN/Creat Ratio 17.3 RATIO (10-20); Calcium,Total 9.7 mg/dL (8.5-10.1); Chloride 102 mmol/L (98-107); Cholesterol 215 mg/dL (200); Creatinine, Serum 0.75 mg/dL (0.55-1.02); EST Glomerular Filtration Rate 82 mL/min (>60); Est Glom Filt Rate - Afr Amer 99 mL/min (>60); Globulin 4.5 g/dL (2.2-4.2); Glucose 87 mg/dL (74-106); High Density Lipoprotein 71 mg/dL; Iron 110 ug/dL (50-170); Magnesium 2.2 mg/dL (1.6-2.6); Potassium 4.3 mmol/L (3.5-5.1); Protein, Total 8.2 g/dL (6.4-8.2); Sodium Level 138 mmol/L (136-145); Thyroid Stim Hormone (TSH) 1.74 uIU/mL (0.358-3.74); Triglycerides 99 mg/dL; Very Low Density Lipoprotein 20 mg/dL (5-40)
[2023-09-15 13:30] LABS: Mean Corpuscular Hgb 34.8 pg (27.0-32.0)
[2023-09-15 13:31] LABS: Mean Corp Hgb Conc 33.9 g/dL (32-36)
== END | disposition home or self-care (01) ==
LOC: BIMLAB 10:45
PROVIDERS: PCP Family Medicine; Visit Provider Family Medicine
DX: I10 Essential (primary) hypertension (principal); E55.9 Vitamin D deficiency, unspecified; D50.9 Iron deficiency anemia, unspecified; E78.5 Hyperlipidemia, unspecified; M79.7 Fibromyalgia
CPT/HCPCS: 80053; 80061; 82306; 82607; 83540; 83735; 84443; 85027

== ENCOUNTER → 2024-03-22 | Outpatient (CLI) | payer MEDICARE, SELFPAY ==
[2024-03-22 12:52] LABS: ALB/GLOB Ratio 0.8 RATIO (0.9-2.4); AST(SGOT) 13 U/L (15-37); Alanine Aminotransfer ALT/SGPT 19 U/L (13-56); Albumin, Serum 3.4 g/dL (3.2-5.0); Alkaline Phosphatase 74 U/L (45-117); Anion Gap 4 (5-15); BUN 17 mg/dL (7-18); BUN/Creat Ratio 26.1 RATIO (10-20); Calcium,Total 9.5 mg/dL (8.5-10.1); Chloride 106 mmol/L (98-107); Cholesterol 184 mg/dL (200); Creatinine, Serum 0.65 mg/dL (0.55-1.02); EST Glomerular Filtration Rate 96 mL/min (>60); Est Glom Filt Rate - Afr Amer 116 mL/min (>60); Globulin 4.5 g/dL (2.2-4.2); Glucose 84 mg/dL (74-106); High Density Lipoprotein 60 mg/dL; Potassium 4.4 mmol/L (3.5-5.1); Protein, Total 7.9 g/dL (6.4-8.2); Sodium Level 138 mmol/L (136-145); Triglycerides 128 mg/dL; Very Low Density Lipoprotein 26 mg/dL (5-40)
== END | disposition home or self-care (01) ==
LOC: BIMLAB 08:47
PROVIDERS: PCP Family Medicine; Referring Provider Family Medicine; Visit Provider Family Medicine
DX: Z00.00 Encounter for general adult medical examination without abnormal findings (principal); Z13.1 Encounter for screening for diabetes mellitus; E78.5 Hyperlipidemia, unspecified
CPT/HCPCS: 36415; 80053; 80061